=== PATIENT | male | born 1985 | race Caucasian/White ===

== ENCOUNTER 2025-10-10 10:44 | Inpatient (IN) | payer OTHER, SELFPAY ==
[2025-10-10] VITALS (8 sets, daily range): BP systolic 162–195; BP diastolic 97–115; PULSE 61–79; RESP 16–18; TEMP 36.6–37.4; O2SAT 98–100; BMI 28.3; BMI 29.4
--- NOTE | 2025-10-10 10:53 | ED.VIS.GI ---
HPI HPI - GI History of Present Illness Chief Complaint: Abd Pain Informant: patient Abdominal Pain/Flank Pain Onset: Month(s) Context: Gradual Onset Timing: Continuous Quality: Aching Location: Diffuse Worsened by: - (Not drinking alcohol) Relieved by: - (Alcohol) Nausea/Vomiting/Emesis GI Symptom: Positive for Nausea and Vomiting Diarrhea/Melena/Hematochezia GI Symptom: Negative for Diarrhea, Melena or Hematochezia Associated Symptoms Associated Symptoms: Negative for Dysuria, Frequency or Hematuria Narrative Narrative: Patient presents with abdominal pain that has gradually gotten worse over the past couple months. Patient states that it waxes and wanes. Patient states this pain is diffuse across his abdomen. Patient states it is worse when he tries to stop drinking alcohol. Patient states he gets better after he drinks some beer. Patient states he drinks approximately 20-30 beers per day. Patient states his last drink was approximately 30 minutes prior to arrival. Patient denies any prior history of detox. Patient admits to some nausea and vomiting. Patient denies any diarrhea, melena, or hematochezia. Patient denies any dysuria, frequency, or hematuria. Patient states his urine is dark however. [facility] Medical History (Updated 10/10/25 @ 12:[address] Jose Britt DO) ETOH abuse Hypertension Home Medications ?Medication ?Instructions ?Recorded ?Last Taken ?Type NK 10/10/25 Unknown History Allergy/AdvReac Type Severity Reaction Status Date / Time No Known Allergies Allergy Verified 10/10/25 10:47 Surgical History (Updated 10/10/25 @ 11:[address] Jose Britt DO) Hx of hand surgery Social History Smoking Status: Current every day smoker tobacco type: cigarettes ROS ROS ED Constitutional Constitutional ED: Denies chills or fever(s) Eyes Eyes: Denies blurry vision or change in vision ENT ENT ED: Reports sore throat; Denies rhinorrhea Cardiovascular Cardiovascular: Denies chest pain or palpitations Respiratory/Chest Respiratory/Chest: Reports dyspnea; Denies cough Gastrointestinal Gastrointestinal: Reports abdominal pain, nausea and vomiting; Denies diarrhea or melena Genitourinary Genitourinary ED: Denies dysuria or hematuria Musculoskeletal Musculoskeletal: Reports back pain; Denies neck pain Integumentary Denies abscess or rash Neurologic Neurologic: Denies headache(s) or weakness Allergic/Immunologic Allergic/Immunologic ED: Denies mouth swelling or urticaria EXAM Physical Exam Const Vital Signs: 10/10/25 10:44 10/10/25 12:24 Temperature 98.2 F Temperature Source Oral Pulse Rate 71 65 Respiratory Rate 16 18 Blood Pressure 184/115 H 195/110 H Blood Pressure Mean 138 138 Pulse Ox 98 100 Oxygen Delivery Method Room Air Room Air Positive well nourished and well developed General Appearance ED: well developed and NAD HEENT Reports moist mucous membranes Neck supple and no JVD Resp normal respiratory effort and clear to auscultation bilaterally Cardio regular rate and regular rhythm GI non-distended Palpation: soft and tender epigastric and RUQ; Negative for guarding or rebound tenderness present Extremity full ROM General Extremety ED: Negative for edema or tenderness General Extremity: Negative for edema Neuro CN's II-XII intact bilaterally, moves all extremities and no sensory deficits noted Sensorium / Orientation: alert, oriented to person, oriented to place and oriented to time Motor Exam: strength 5/5 throughout Psych mental status grossly normal and thought process normal MDM MDM MDM Narrative Medical decision making narrative: Differential diagnosis includes peptic ulcer disease, duodenal ulcer, pancreatitis, cholecystitis, cholelithiasis, electrolyte abnormality, alcohol intoxication, and alcohol withdrawal. CT scan of the abdomen and pelvis will be obtained to assess for peptic ulcer disease, duodenal ulcer, pancreatitis, cholecystitis, and cholelithiasis. CBC will be obtained to assess for leukocytosis and anemia. Comprehensive metabolic profile will be obtained to assess for hepatic function, renal function, and electrolyte abnormality. Lipase will be obtained to assess for pancreatitis. Urinalysis will be obtained to assess for urinary tract infection and hematuria. Serum alcohol level will be obtained to assess for alcohol intoxication. Urine tox screen will be obtained to assess for substance abuse. Lab Data Attestation: I reviewed the patient's lab results. Lab results narrative: CBC was reviewed. There is a mild leukocytosis of 11.1. Hemoglobin was slightly elevated at 16.9. Platelets were slightly low at 88. Comprehensive metabolic profile was reviewed. Chloride was low at 86. Anion gap was slightly elevated at 19. CO2 was normal at 28.1. Glucose was 112. Total bilirubin was mildly elevated at 1.81, AST was 115, and ALT was 107. Alkaline phosphatase was normal at 69. Lipase was reviewed and was elevated at 511. Urinalysis was reviewed. There is no evidence of urinary tract infection or hematuria. Labs: Laboratory Results - last 24 hr 10/10/25 10/10/25 11:20 11:45 WBC 11.1 H RBC 5.20 Hgb 16.9 H Hct 46.8 MCV 90.0 MCH 32.5 H MCHC 36.1 H RDW Std Deviation 38.7 RDW Coeff of [place] 11.8 Plt Count 88 L MPV 10.9 Immature Gran % (Auto) 0.500 Neut % (Auto) 84.1 H Lymph % (Auto) 7.0 L [place] % (Auto) 7.6 Eos % (Auto) 0.3 Baso % (Auto) 0.5 Absolute Neuts (auto) 9.3 H Absolute Lymphs (auto) 0.77 L Nucleated RBC % 0 Platelet Estimate MOD DEC PT 12.6 INR 0.9 APTT 25.7 Sodium 133 Potassium 3.8 Chloride 86 L Carbon Dioxide 28.1 Anion Gap 19 H BUN 5 Creatinine 0.71 Estim Creat Clear Calc 157.16 Est GFR (MDRD) Non-Af 120 BUN/Creatinine Ratio 6.8 L Glucose 112 H Calcium 9.7 Total Bilirubin 1.81 H AST 115 H ALT 107 H Alkaline Phosphatase 69 Total Protein 7.6 Albumin 4.5 Globulin 3.1 Albumin/Globulin Ratio 1.4 Lipase 511 H Urine Color Yellow Urine Clarity Clear Urine pH 7.0 Ur Specific [place] 1.005 Urine Protein 30 H Urine Glucose (UA) Normal Urine Ketones 5 H Urine Occult Blood 10 H Urine Nitrite Negative Urine Bilirubin Negative Urine Urobilinogen 4 H Ur Leukocyte Esterase Negative Urine RBC 0 SEEN Urine WBC 0 SEEN Ur Squamous Epith Cells 0 SEEN Urine Bacteria 0 SEEN Urine Mucus 0 SEEN Radiography Diagnostic Testing: Clinical Impression(s) from Imaging Studies Abdomen/Pelvis CT 10/10/25 11:14 IMPRESSION: 1. Findings consistent with acute pancreatitis. No signs of pancreatic necrosis or pseudocyst. 2. Hepatomegaly with diffuse hepatic steatosis. 3. Multifocal right lung opacities, suggesting pneumonia. Reading Location: [facility] CT scan of the abdomen and pelvis was obtained. There is some inflammation of the head of the pancreas. There is no evidence of bowel obstruction or perforation. There is no free air or free fluid. This was interpreted by the radiologist. I also independently reviewed the images. I did not see any free air or free fluid. There is no evidence of bowel obstruction. There is no reinflation of the head of the pancreas. Management Discussion w/another healthcare provider: Hospitalist (Dr. Santamaria) Treatment and Re-Evaluation :: Patient was given IV fluids, morphine, and Zofran. Patient was feeling better on reevaluation. Patient was advised of his findings. Patient was advised of the need for hospitalization. Patient is agreeable with this. Case was discussed with the hospitalist. She will admit the patient to her service. Patient understood and was agreeable with the plan. All questions were answered. Discharge Plan Dx/Rx/DC Orders Clinical Impression: Acute pancreatitis, Alcohol withdrawal, Hypertension Disposition Disposition: Acute Care Hospital [facility]
--- NOTE | 2025-10-10 11:14 | CT_ITS ---
PROCEDURE: ABDOMEN/PELVIS W IV CONT ONLY 10/10/2025 REASON FOR EXAM: Abdominal and back pain. Nausea/vomiting. History of alcohol abuse. TECHNIQUE: Procedure Code: [id number] Modality: CT Procedure: ABDOMEN/PELVIS W IV CONT ONLY Coronal and Sagittal reconstruction series were provided. CONTRAST: Isovue 370 VOLUME: 100 mL One or more dose reduction techniques were used (e.g., Automated exposure control, adjustment of the mA and/or kV according to patient size, use of iterative reconstruction technique. RADIATION DOSE SUMMARY: CTDlvol: 9.97, 19.96 mGy DLP: 1108.51 mGycm COMPARISON: None. FINDINGS: LUNG BASES: Patchy peripheral opacities in the right middle lobe and to a lesser degree right lower lobe. LIVER: Enlarged measuring 19.0 cm in length. Diffuse decrease in parenchymal density. GALLBLADDER: Unremarkable. No calcified stone. BILE DUCTS: No ductal dilation. PANCREAS: Moderate fluid along the pancreatic head with mild stranding along the tail. Homogeneous parenchymal enhancement. No ductal dilation. SPLEEN: Unremarkable. ADRENAL GLANDS: Unremarkable. KIDNEYS: Unremarkable. The kidneys enhance symmetrically. No hydronephrosis or hydroureter. STOMACH AND BOWEL: No obstruction or perforation. No wall thickening. No CT evidence of colitis or acute diverticulitis. APPENDIX: Normal-appearing appendix. No CT evidence for appendicitis. RETRO/PERITONEUM: Fluid in the right retroperitoneum and pelvis. No free air or focal fluid collections. LYMPH NODES: No lymphadenopathy. PELVIC ORGANS: Unremarkable as visualized. VASCULATURE: No aortic aneurysm. Mild scattered calcified atherosclerosis. ABDOMINAL WALL AND SOFT TISSUES: Unremarkable. BONES: No fracture or suspicious osseous abnormality. CT/Abdomen/Pelvis W IV Cont ONLY IMPRESSION: 1. Findings consistent with acute pancreatitis. No signs of pancreatic necros is or pseudocyst. 2. Hepatomegaly with diffuse hepatic steatosis. 3. Multifocal right lung opacities, suggesting pneumonia. Reading Location: [id number]
[2025-10-10 11:32] LABS: Differential Indicated SCAN CRITERIA MET; Hematocrit 46.8 % (40-54); Hemoglobin 16.9 g/dL (13.0-16.5); Immature Granulocytes Count 0.060 X10^3/uL (0.0-0.0); Mean Corp Hgb Conc 36.1 g/dL (32-36); Mean Corpuscular Volume 90.0 fL (80-94); Mean Platelet Vol. 10.9 fl (6.2-12.0); NRBC Flagged by Analyzer 0 % (0-5); POSITIVE COUNT YES; Platelet Count 88 K/mm3 (150-450); RBC Distribution Width CV 11.8 % (11.6-14.6); RBC Distribution Width SD 38.7 fl (35.1-43.9); Red Blood Count 5.20 M/mm3 (4.6-6.2); White Blood Count 11.1 K/mm3 (4.4-11.0)
[2025-10-10 11:40] LABS: Prothrombin Time (Protime)PT. 12.6 SECONDS (11.7-14.9)
[2025-10-10 11:41] LABS: Partial Thromboplast Time 25.7 Seconds (24.1-36.2)
[2025-10-10] MEDS: 0.9% Normal Saline (1000mL) 1,000 ML 1000 ML IV (11:41)
[2025-10-10 11:52] LABS: Mucous, Urine 0 SEEN /hpf (<or=2+); Red Blood Cells-Urine 0 SEEN /hpf (0-5); Squamous Epithelial Cells - UA 0 SEEN /hpf (0-5)
[2025-10-10 11:54] LABS: Color, Urine Yellow (Yellow); Glucose, Dipstick Normal (Normal); Ketone-Dipstick 5 mg/dl (Negative); Leukocyte Esterase-Dipstick Negative /ul (Negative); Nitrite-Dipstick Negative (Negative); Occult Blood-Urine 10 /ul (Negative); Protein-Dipstick 30 mg/dl (Negative); Specific Gravity, Urine 1.005 (1.002-1.030); Urine Bilirubin Dipstick Negative (Negative)
--- OUTSIDE RECORDS SUMMARY | 2025-10-10 11:58 | XMS RPT_ITS | CCD ---
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 care - The patient is transitioning into care from an emergency room ([place]) and a summary of care was reviewed. 02-06-2022 Unclassified (1 source) [ADDITIONAL REASON] Follow up consultation - The patient is here to follow-up after hospitalization ([facility] with chest pain. Patient was advised to take Lisinopril 40mg daily. He did this for about 3 days but stopped due to feeling dizzy/lightheaded. He checked his BP and was running low about 100/60. So he went back to taking only Lisinopril 20mg daily. Was also started on HCTZ 25mg daily.) on : (discharge 01-30-22). Current symptoms include Feeling good (denies current chest pain or shortness of breath.). Note for Consultation follow-up: Had a stress test and ECHO 01-30-22. reviewed by [facility] 02-06-2022 Results Test Name Value Interpretation Reference Range Facility ED MED ADMINISTRATION DETAIL on 08-09-2025 ED MED ADMINISTRATION DETAIL [facility] - CARLOTTA EVANGELISTA : 1985, , Medication Administration Record [place] [id number] 08/08/2025 Patient: CARLOTTA EVANGELISTA Sex: Male : 1985 Age: 39y MEASUREMENTS: Wt: 95.3 kg, Ht/Pancho: 70.0 in, BMI: 30.13 ALLERGIES: No known drug allergies Medication Ordered Medication Administration Date/Time IV NS 0.9 % 21:14 08/08 IV NS 0.9 % 1000 mL started in bag#1 1000 Started 1000 mL at 500 mL at 500 mL/hr over 1 hour(s) via Site# 1. Allergies 21:14 08/08/2025 mL/hr (NOW x1) verified and confirmed 5 rights. IV patency established. IV Radha Woodward R.N. site checked: no pain, redness, or swelling. IV flushed Stopped thoroughly pre-medication administration. Information 00:48 08/09/2025 reviewed with patient including reason for taking this Radha Woodward R.N. medication. Verbalizes understanding. Completed per Scanned protocol. - 21:14 Radha Woodward R.N. 00:48 08/09 Medication Discontinued: bag #1 infused. Total amount infused: 1000 mL. - 01:03 Radha Woodward R.N. Zofran IVP 4 mg 21:15 10 Zofran IVP 4 mg given over 1 minute(s) via Given (NOW x1) Site# 1. Allergies verified and confirmed 5 rights. IV 21:15 08/08/2025 patency established. IV site checked: no pain, redness, or Radha Woodward R.N. swelling. IV flushed thoroughly pre-medication Scanned administration. Information reviewed with patient including reason for taking this medication. Verbalizes understanding. - 21:16 Radha Woodward R.N. 1 of 2 [facility] - CARLOTTA EVANGELISTA DOB: 1985, , KetorOLAC 21:17 08/08 KetorOLAC (Toradol) IVP 30 mg given over 1 Given (Toradol) IVP 30 minute(s) via Site# 1. Allergies verified and confirmed 5 21:17 08/08/2025 mg (NOW x1) rights. IV patency established. IV site checked: no pain, Radha Woodward, R.N. redness, or swelling. IV flushed thoroughly pre-medication Scanned administration. Information reviewed with patient including reason for taking this medication. Verbalizes understanding. - 21:17 Radha Woodward, R.N. Thiamine IVP 21:20 08/08 Thiamine IVP 100 mg given over 1 minute(s) Given 100 mg (NOW via Site# 1. Allergies verified and confirmed 5 rights. IV 21:20 08/08/2025 x1) patency established. IV site checked: no pain, redness, or Radha Woodward R.N. swelling. IV flushed thoroughly pre-medication Scanned administration. Information reviewed with patient including reason for taking this medication. Verbalizes understanding. Medication Wastage: 100 mg wasted. - 21:24 Radha Woodward R.N. 2 of 2 Normal [facility] ED NURSES CLINICAL NOTEon ED NURSES CLINICAL NOTE Nurse Narrative - CARLOTTA EVANGELISTA, : 1985, , Nurse Clinical Narrative [address] [address] [id number] 08/08/2025 20:21:00 Patient: CARLOTTA EVANGELISTA Sex: Male : 1985 Age: 39y Disposition: Discharge Disposition Decision Time: 00:54 08/09/2025 Departure Time: 00:56 08/09/2025 TRIAGE Arrived by private vehicle. Historian: (patient). Accompanied by family. Primary physician (Dr. Parnell). Triage time: 20:24 08/08/2025. Acuity: LEVEL 3. Chief Complaint: ABDOMINAL PAIN, NAUSEA and VOMITING and (RUQ pain). This started today. The patient has had nausea, vomiting and abdominal pain. No diarrhea, constipation or fever. SEPSIS SCREEN: NEGATIVE. SIRS criteria negative. No possible sources of infection. -- 20:08/08/25 LOLITA Alvarez R.N. 20:08/08/25. BP: 155/102 MAP: 120. HR: 88. RR: 18. O2 saturation: 98% on room air. Temperature: 98.6 F. Pain level now 06/13. -- 20:08/08/25 LOLITA Alvarez R.N. Measurements: 20:08/08/25 Wt: 95.3 kg, Ht/Pancho: 70.0 in, BMI: 30.13 -- 20:08/08/25 LOLITA Alvarez R.N. Medications: no known home medications -- 20:08/08/25 LOLITA Alvarez R.N. 1 of 4 Nurse Narrative - CARLOTTA EVANGELISTA, : 1985, , Allergies: no known drug allergies -- 20:08/08/25 LOLITA Alvarez R.N. Problems: no known problem -- 20:08/08/25 LOLITA Alvarez R.N. Surgeries: left hand surgery -- 20:08/08/25 LOLITA Alvarez R.N. History 20:24 08/08/25. SOCIAL HX: Heavy tobacco smoker- 1 pack per day. Alcohol use; consumes beer daily. Occasional drug use: marijuana. The patient has not traveled outside the [place] Infectious disease exposure: No infectious disease exposure. ABUSE ASSESSMENT: The patient answered yes to the question(s) Do you feel safe in your home? and no to the question(s) Are you afraid to go home?. SELF HARM ASSESSMENT: Self harm assessment was performed. The patient answered no to the question(s) Have you recently felt down, depressed, or hopeless? and Do you have thoughts of harming or killing yourself?. FALL RISK ASSESSMENT: Fall risk assessment completed. No risk factors identified. SKIN INTEGRITY ASSESSMENT: Skin integrity risk assessment completed. No skin integrity risk identified. -- 20:08/08/25 EDT Karen Alvarez R.N. Interventions 20:24 08/08/25. Advanced care plan. Patient does not have advanced directive. -- 20:29 08/08/25 EDT Karen Alvarez R.N. 2 of 4 Nurse Narrative - CARLOTTA EVANGELISTA, : 1985, , PHYSICAL ASSESSMENT 20:59 08/08/25. GENERAL / NEURO / PSYCH: Alert. Oriented X 4. Appears in pain. HEENT: Mucous membranes are pink. RESPIRATORY: Respirations not labored. Breath sounds within normal limits. CVS: Normal sinus rhythm noted. Capillary refill less than 2 seconds. GI / : Abdominal tenderness in the right upper quadrant. SKIN: Skin is warm and dry. -- 20:59 08/08/25 EDT Radha Woodward R.N. NURSING PROGRESS NOTES 20:47 08/08/25. Two patient identifiers checked. Call light placed in reach. Side rails up x 2. Bed placed in lowest position. Brakes of bed on. -- 20:47 08/08/25 EDT Radha Woodward R.N. 20:47 08/08/25. Site #1 started in the right antecubital space with an 18g needle with aseptic technique and good blood return; 1 attempt. Blood drawn: rainbow set and flores tube(s). Labeled in the presence of the patient and sent to the lab. Saline lock flushed with 5 mL saline. -- 20:47 08/08/25 GÓMEZT Radha Woodward R.N. 21:14 08/08/25. IV NS 0.9 % 1000 mL started in bag#1 1000 mL at 500 mL/hr over 1 hour(s) via Site# 1. Allergies verified and confirmed 5 rights. IV patency established. IV site checked: no pain, redness, or swelling. IV flushed thoroughly pre-medication administration. Information reviewed with patient including reason for taking this medication. Verbalizes understanding. Completed per protocol. -- 21:14 08/08/25 GÓMEZT Radha Woodward R.N. 21:15 08/08/25. Zofran IVP 4 mg given over 1 minute(s) via Site# 1. Allergies verified and confirmed 5 rights. IV patency established. IV site checked: no pain, redness, or swelling. IV flushed thoroughly pre-medication administration. Information reviewed with patient including reason for taking this medication. Verbalizes understanding. -- 21:16 08/08/25 EDT Radha Woodward R.N. 21:17 08/08/25. KetorOLAC (Toradol) IVP 30 mg given over 1 minute(s) via Site# 1. Allergies verified and confirmed 5 rights. IV patency established. IV site checked: no pain, redness, or swelling. IV flushed thoroughly pre-medication administration. Information reviewed with patient including reason for taking this medication. Verbalizes understanding. -- 21:17 08/08/25 EDT Radha Woodward R.N. 21:20 08/08/25 (more content not included)... Normal [facility] ED ORDER SHEET (CPOE ONLY)on 08-09-2025 ED ORDER SHEET (CPOE ONLY) Order Sheet - CARLOTTA EVANGELISTA, : 1985, , Order Sheet [address] [address] [id number] 08/08/2025 Patient: CARLOTTA EVANGELISTA Sex: Male : 1985 Age: 39y MEASUREMENTS: Wt: 95.3 kg, Ht/Pancho: 70.0 in, BMI: 30.13 ALLERGIES: No known drug allergies MEDICATION/IV/DRIP/F LUID ORDERS Acknowledge Order Description Priority Entered d Completed IV NS 0.9 %1000 mL at 500 21:04 08/08/2025 21:10 21:14 mL/hr (NOW x1) Michael Gutierrez, 08/08/2025 08/08/2025 Nilsa.ORadha Gill, R.N. R.N. Zofran IVP4 mg (NOW x1) 21:04 08/08/2025 21:10 21:16 Michael Gutierrez, 08/08/2025 08/08/2025 MargaritoORadha Gill, Susan.N. R.N. KetorOLAC (Toradol) IVP15 21:04 08/08/2025 Cancelled: Other mg (NOW x1) Michael Gutierrez, 21:05 EDT Tre AdamesOJosefina KetorOLAC (Toradol) IVP30 21:05 08/08/2025 21:10 21:17 mg (NOW x1) Michael Gutierrez, 08/08/2025 08/08/2025 Nilsa.ORadha Gill R.N. RJosefinaNJosefina 1 of 4 Order Sheet - CARLOTTA EVANGELISTA, : 1985, , Reason for ordering with Benefits outweigh risks --21:05 08/08/2025 Michael alerts: Tre Gutierrez Thiamine HRT989 mg (NOW 21:08 08/08/2025 21:10 21:24 x1) Michael Gutierrez, 08/08/2025 08/08/2025 D.ORadha Gill R.N. RJosefinaNJosefina LAB ORDERS Acknowledge Order Description Priority Entered d Collected Completed CBC w Diff Stat Stat 21:07 21:09 21:10 08/08/2025 08/08/2025 08/08/2025 Radha Adames R.N. Anne Rutt, R.N. D.O. CMP Stat Stat 21:07 21:09 21:10 08/08/2025 08/08/2025 08/08/2025 Radha Adames R.N. Anne Rutt, R.N. D.O. Lipase Stat Stat 21:07 21:09 21:10 08/08/2025 08/08/2025 08/08/2025 Radha Adames R.N. Anne Rutt, R.N. D.O. EKG - ED Stat Stat 21:07 21:09 21:55 08/08/2025 08/08/2025 08/08/2025 Radha Adames R.N. Anne Rutt, R.N. D.OJosefina Troponin-I Protocol Stat 21:07 21:09 21:10 (STAT 1hr) (Sched: 08/08/2025 08/08/2025 08/08/2025 2 of 4 Order Sheet - CARLOTTA EVANGELISTA, : 1985, , q1h X2); Stat 1 of 2 Radha Adames R.N. Anne Rutt, RJosefinaNJosefina PimentelO. Troponin-I Protocol Stat 21:07 21:09 22:59 (STAT 1hr) (Sched: 08/08/2025 08/08/2025 08/08/2025 q1h X2); Stat 2 of 2 Radha Adames R.N. Anne Rutt, R.N. D.O. D-Dimer Stat Stat 21:07 21:09 21:10 08/08/2025 08/08/2025 08/08/2025 Radha Adames R.NYessenia Gill.O. Blood Alcohol - Stat 21:07 21:09 21:10 ETOH Stat 08/08/2025 08/08/2025 08/08/2025 Radha Adames R.N. Anne Rutt, R.N. D.O. DIAGNOSTIC STUDY ORDERS Acknowledge Order Description Priority Entered d Completed CT Chest/Abd/Pelvis wo Stat 21:07 08/08/2025 21:09 21:56 Cont Stat Michael Gutierrez, 08/08/2025 08/08/2025 D.O. Radha Sepulveda, R.N. R.N. Reason for Study: Abdominal Pain STAFF ORDERS Acknowledge Order Description Priority Entered d Collected Completed Obtain Old EKG 21:07 21:09 22:05 08/08/2025 08/08/2025 08/08/2025 3 of 4 Order Sheet - CARLOTTA EVANGELISTA, : 1985, , Radha Adames R.NYessenia GillO. [Electronically signed by Michael Gutierrez D.O. (08/09/2025 04:38 EDT)] [Electronically signed by Michael Gutierrez D.O. (08/09/2025 15:32 EDT)] [Electronically signed by Michael Gutierrez D.O. (08/09/2025 17:18 EDT)] 4 of 4 Normal [facility] ED PHYSICIAN CLINICAL REPORT on 08-09-2025 ED PHYSICIAN CLINICAL REPORT Narrative - CARLOTTA EVANGELISTA, : 1985, , Physician Clinical Narrative [address] [address] [id number] 08/08/2025 20:21:00 Patient: CARLOTTA EVANGELISTA Sex: Male : 1985 Age: 39y Disposition: Discharge to Home Disposition Decision Time: 00:54 08/09/2025 Departure Time: 00:56 08/09/2025 Measurements Wt: 95.3 kg, Ht/Pancho: 70.0 in, BMI: 30.13 Initial Vital Sign Measured Supriya Time BP MAP HR RR O2Sat ETCO2 Temp n GCS RTS 20:27 155/102 117 88 08/08/2025 PAST HISTORY no known problem Surgeries: left hand surgery Medications: no known home medications Allergies: no known drug allergies 1 of 12 Narrative - CARLOTTA EVANGELISTA, : 1985, , PROGRESS AND PROCEDURES MEDICAL DECISION MAKING: (1535 hours, 09 AUG 2025: Call to patient, , to check status, at discharge patient had been improved, wanted to depart the ER: Answering machine to phone, full, no message could be left. Will attempt a call later. Nate GUTIERREZ< ER PHYSICIAN, [facility] [place]). (Electronically signed by Michael Gutierrez D.O. 08/09/25 15:32:18 EDT) Disposition History: Disposition Decision Time: 00:54 08/09/2025. Disposition changed to Discharge. Departure Time: 00:56 08/09/2025. -- 01:04 08/09/2025 Radha Woodward R.N. Disposition Decision Time: 00:54 08/09/2025. Disposition changed to Discharge to Home. Departure Time: 00:56 08/09/2025. -- 04:37 08/09/2025 Michael Gutierrez D.O. Generated by [facility] Physician Clinical Narrative [place] [id number] [place] [address] [id number] 08/08/2025 20:21:00 Patient: CARLOTTA EVANGELISTA Sex: Male : 1985 Age: 39y Disposition: Discharge to Home Disposition Decision Time: 00:54 08/09/2025 Departure Time: 00:56 08/09/2025 Measurements Wt: 95.3 kg, Ht/Pancho: 70.0 in, BMI: 30.13 Initial Vital Sign Measured Supriya Time BP MAP HR RR O2Sat ETCO2 Temp n GCS RTS 2 of 12 Narrative - CARLOTTA EVANGELISTA, : 1985, , 20:27 155/102 117 88 08/08/2025 Time Seen: 20:47 08/08/2025. Historian- patient. Independent historian- family. HISTORY OF PRESENT ILLNESS Chief Complaint: ABDOMINAL PAIN. (Right upper quad, 3-4 hours, insidious onset, worse to breath, worse to move, no hx trauma, no hx of same,). Is still present. It is described as pain, sharp and stabbing. No radiation. It is described as located in the right upper quadrant. At its maximum, severity described as moderate. The patient has had nausea and vomiting. No diarrhea. Similar symptoms previously. None. REVIEW OF SYSTEMS EYES: No blurred vision. THROAT: No sore throat. NEUROLOGICAL: No headache. CONSTITUTIONAL: No fever. : No difficulty with urination, pain with urination or urinary frequency. GI: No constipation, black stools or hematemesis. PAST HISTORY Family hx cardiac father, patient states had cardiac testing two years ago was normal, no hx abd sx, no hx food issues, was watching parade at time of onset; (+) cig, (+) etoh (he states quite a bit). No history of peptic ulcer. No history of gallstones or bowel obstruction. Has not had urinary calculi. no known problem Surgeries: left hand surgery Medications: no known home medications Allergies: no known drug allergies 3 of 12 Narrative - CARLOTTA EVANGELISTA, : 1985, , ADDITIONAL NOTES The nursing notes have been reviewed. PHYSICAL EXAM Vital Signs: Have been reviewed. Appearance: Alert. Patient in moderate distress. Eyes: Pupils equal, round and reactive to light. Eyes normal inspection. ENT: Ears normal. Nose normal. Pharynx normal. Neck: Normal inspection. Neck supple. CVS: Normal heart rate. Heart sounds normal. Pulses normal. Respiratory: No respiratory distress. Painless inspiration. Breath sounds normal. Chest nontender. Abdomen: Soft. Moderate tenderness in the right upper quadrant (right upper quad in mid ax line, not writhing as in kidney stone). Bowel sounds normal. No organomegaly. No mass. Femoral pulses equal. Back: Normal inspection. : Normal genitalia. Testes descended. Skin: Skin warm and dry. Normal skin color. No rash. Normal skin turgor. Extremities: Extremities exhibit normal ROM. No lower extremity edema. Neuro: Oriented X 3. No motor deficit. No sensory deficit. Reflexes normal. LABS, X-RAYS, AND EKG Note - Tests: (ekg nl 2154 hours, nsr 08 AUG 2025, no acuity, er physcian reading, ct chest abd pelvis nad rad read). Laboratory Tests: ALCOHOL-BLOOD MEDICAL Final BOBO: 08/08/2025 20:30:00 EDT MsgRcvd: 08/08/2025 21:34 EDT Lab Test Result Reference Status Received 326 mg/dl 08/08/2025 21:34 ALCOHOL 0 - (more content not included)... Normal [facility] ED SUPER BILLon 08-09-2025 [facility] CARLOTTA EVANGELISTA, : 1985, , [address] [place] [address] [id number] 08/08/2025 Patient: CARLOTTA EVANGELISTA Sex: Male : 1985 Age: 39y Item Facility Profession Category Description Code al Code Quantity Fee Total Drugs Normal 321304 1 $0.00 $0.00 Saline 1000cc (600881) Nurse/E/M EMERGENCY 221429 1 $0.00 $0.00 [facility]05176- [facility] Nurse/IV/IM/ Hydration 077413 4 $0.00 $0.00 Infusions additional hour (54146) Nurse/IV/IM/ IVP 121063 2 $0.00 $0.00 Infusions additional push (17408) Nurse/IV/IM/ IVP initial 406446 1 $0.00 $0.00 Infusions (86205) 1 of 2 Superbill - CARLOTTA EVANGELISTA, : 1985, , Grand Total $0.00 Providers Tre Adames D.O. Timothy Omley, D.O. Chief Complaint ABDOMINAL PAIN. 2 of 2 Normal [facility] ED VISIT SUMMARYon ED VISIT SUMMARY Visit Overview - CARLOTTA EAVNGELISTA : 1985, , Visit [address] [address] [id number] 08/08/2025 Patient: CARLOTTA EVANGELISTA Sex: Male : 1985 Age: 39y 08/09/2025 05:18 PM EDT ED Arrival:20:21 08/08/2025 Status: Recent Travel:no EDT Language:eng Adv Directive:No Isolation Status: Infectious Disease Ethnicity:N Fall Risk:no risk Exposure:no Measurements:5'10 / Self-Harm Status:risk Sepsis Screen:negative 177.8 cm 210.0 lb / 95.3 kg Chief Complaint:ABDOMINAL PAIN, NAUSEA, VOMITING, (Dr. Parnell ), and (RUQ pain ) ALLERGIES No Known Drug Allergies HOME MEDICATIONS None 1 of 3 Visit Overview - CARLOTTA EVANGELISTA, : 1985, , PAST MEDICAL HISTORY / PROBLEMS None PAST SURGICAL HISTORY left hand surgery SOCIAL HISTORY Smoking status: Yes Alcohol use: Yes Drug use: Yes ED COURSE MEDICATIONS GIVEN IN EMERGENCY DEPARTMENT 21:14 08/08/25 IV NS 0.9 % 1000 mL 500 mL/hr over 1 hour(s) 21:15 08/08/25 Zofran IVP 4 mg over 1 minute(s) 21:17 08/08/25 KetorOLAC (Toradol) IVP 30 mg over 1 minute(s) 21:20 08/08/25 Thiamine IVP 100 mg over 1 minute(s) IV SITE INFORMATION INTAKE OUTPUT REASSESMENT (most recent) 20:59 08/08/25. GENERAL / NEURO / PSYCH: Alert. Oriented X 4. Appears in pain. HEENT: Mucous membranes are pink. RESPIRATORY: Respirations not labored. Breath sounds within normal limits. CVS: Normal sinus rhythm noted. Capillary refill less than 2 seconds. GI / : Abdominal tenderness in the right upper quadrant. SKIN: Skin is warm and dry. VITAL SIGNS First Vitals Last Vitals Temp 20:27 08/08/25 Temp 00:54 08/09/25 BP 20:27 08/08/25 155/102 BP 00:54 08/09/25 HR 20:27 08/08/25 88 HR 00:54 08/09/25 82 2 of 3 Visit Overview - CARLOTTA EVANGELISTA, : 1985, , RR 20:27 08/08/25 RR 00:54 08/09/25 O2 Sat 20:27 08/08/25 O2 Sat 00:54 08/09/25 95% Pain 20:27 08/08/25 Pain 00:54 08/09/25 ETCO2 20:27 08/08/25 ETCO2 00:54 08/09/25 GCS 20:27 08/08/25 GCS 00:54 08/09/25 RTS 20:27 08/08/25 RTS 00:54 08/09/25 PROCEDURES NURSING INTERVENTIONS LABS / STUDIES LABS / STUDIES ORDERED Blood Alcohol - ETOH CBC w Diff CMP CT Chest/Abd/Pelvis wo Cont D-Dimer EKG - ED Lipase Troponin-I Protocol (STAT 1hr) Troponin-I Protocol (STAT 1hr) LABS - ABNORMAL RESULTS ALCOHOL-BLOOD MEDICAL ALCOHOL 326 mg/dl () LABS / STUDIES PENDING IMPORT CT CHEST/ABD/PELVIS C- CLINICAL IMPRESSION 3 of 3 Normal [facility] ED VITALS FLOW SHEETon 08-09 ED VITALS FLOW SHEET Vitals - CARLOTTA EVANGELISTA, : 1985, , Vital Sign Flow Sheet [facility] [address] [place] [address] [id number] 08/08/2025 Patient: CARLOTTA EVANGELISTA Sex: Male : 1985 Age: 39y Measurements Wt: 95.3 kg, Ht/Pancho: 70.0 in, BMI: 30.13 Measured Supriya Time BP MAP HR RR O2Sat ETCO2 Temp n GCS RTS 00:54 82 95% 08/09/2025 00:49 66 92% 08/09/2025 00:44 71 92% 08/09/2025 00:39 71 92% 08/09/2025 00:34 69 92% 08/09/2025 00:32 121/73 89 69 08/09/2025 22:14 77 96% 08/08/2025 22:09 68 97% 08/08/2025 1 of 3 Vitals - CARLOTTA EVANGELISTA, : 1985, , 22:04 68 99% 08/08/2025 21:59 76 98% 08/08/2025 21:54 67 96% 08/08/2025 21:49 68 96% 08/08/2025 21:44 71 95% 08/08/2025 21:39 68 96% 08/08/2025 21:34 77 98% 08/08/2025 21:29 70 98% 08/08/2025 21:24 77 92% 08/08/2025 21:19 73 97% 08/08/2025 21:14 76 96% 08/08/2025 21:09 74 98% 08/08/2025 21:04 76 97% 08/08/2025 20:59 79 97% 08/08/2025 20:54 77 96% 08/08/2025 2 of 3 Vitals - CARLOTTA EVANGELISTA, : 1985, , 20:49 86 96% 08/08/2025 20:44 67 98% 08/08/2025 20:39 77 98% 08/08/2025 20:34 88 96% 08/08/2025 20:29 88 98% 08/08/2025 20:29 155/102 120 88 18 98% RA 98.6 F 8 08/08/2025 20:27 155/102 117 88 08/08/2025 3 of 3 Normal [facility] ALCOHOL-BLOOD MEDICALon Ethanol [Mass/Vol] 326 mg/dL Critically high 0 - 50 [facility] Comment on above: Result Comment: { CA LLED TO PIERCE OBREGON BY AEL AT 2133 { READ BACK BY PIERCE OBREGON RA AT 2133 Performed By: #### 2 [id number] ####[facility],[address] [place] [address] CBC + DIFFon 08-08-2025 Baso # 0.03 x10EE3/UL Normal 0.00 - 0.10 [facility] Comment on above: Performed By: #### 2 [id number] #### [facility],[address] [place] [address] Basophils/100 WBC (Bld) 0.4 % Normal 0.0 - 2.0 [facility] Comment on above: Performed By: #### 2 [id number] #### [facility],[address] [place] [address] CBC + DIFF Normal [facility] Comment on above: Result Comment: CBC- COMPLETE BLOOD COUNT Performed By: #### 2 [id number] #### [place] [address] EO # 0.18 x10EE3/UL Normal 0.00 - 0.50 [facility] Comment on above: Performed By: #### 2 [id number] #### [facility],[address] [place], [place] [phone] Eosinophils/100 WBC (Bld) 2.2 % Normal 0.0 - 7.0 [facility] Comment on above: Performed By: #### 2 [id number] #### [facility],[address] [place], [place] [phone] Erythrocyte distribution width (RBC) [Ratio] 13.3 % Normal 12.0 - 15.6 [facility] Comment on above: Performed By: #### 2 [id number] #### [facility],[address] [place] [address] Hematocrit (Bld) [Volume fraction] 50.8 % Normal 40.0 - 52.0 [facility] Comment on above: Performed By: #### 2 [id number] #### [facility],[address] [place] [address] Hemoglobin (Bld) [Mass/Vol] 17.8 g/dL High 13.0 - 17.5 [facility] Comment on above: Performed By: #### 2 [id number] #### [facility],[address] [place] [address] Lymph # 2.50 x10EE3/UL Normal 0.80 - 2.80 [facility] Comment on above: Performed By: #### 2 10857 #### [facility],[address] [place], [place] [phone] Lymphocytes/100 WBC (Bld) 30.6 % Normal 20.0 - 45.0 [facility] Comment on above: Performed By: #### 2 74486 #### [facility],[address] [place], [place] [phone] MANUAL DIFF N/A Normal [facility] Comment on above: Performed By: #### 2 [id number] #### [facility],[address] [place] [id number] MCH (RBC) [Entitic mass] 32 pg Normal 27 - 33 [facility] Comment on above: Performed By: #### 2 [id number] #### [facility],[address] [place] [address] MCHC 35 X10 3 Normal 32 - 36 [facility] Comment on above: Performed By: #### 2 71738 #### [facility],[address] [place], [place] [phone] MCV (RBC) [Entitic vol] 91 fL Normal 81 - 98 [facility] Comment on above: Performed By: #### 2 [id number] #### [facility],[address] [place] [address] [place] # 0.81 x10EE3/UL Normal 0.20 - 1.00 [facility] Comment on above: Performed By: #### 2 [id number] #### [facility],[address] [place] [address] MONOS % 9.9 % Normal 0.0 - 10.0 [facility] Comment on above: Performed By: #### 2 84694 #### [facility],[address] [place], [place] [id number] Morphology Bryan (Bld) [Interp] N/A Normal [facility] Comment on above: Performed By: #### 2 56830 #### [facility],[address] [place] [address] Neut # 4.64 x10EE3/UL Normal 1.50 - 7.10 [facility] Comment on above: Performed By: #### 2 66902 #### [facility],[address] [place], [place] [id number] Neutrophils/100 WBC (Bld) 56.9 % Normal 46.0 - 76.0 [facility] Comment on above: Performed By: #### 2 62202 #### [facility],[address] [place] [address] PLATELET 190 x10EE3/UL Normal 150 - 450 [facility] Comment on above: Performed By: #### 2 49646 #### [facility],[address] [place] [address] 34004 Platelet mean volume (Bld) [Entitic vol] 7.8 fL Normal 6.4 - 10.5 [facility] Comment on above: Result Comment: AUTO MATED DIFFERENTIAL Performed By: #### 2 90583 #### [facility],[address] [place] [address] 39744 RBC 5.58 x 10EE6/UL Normal 4.50 - 6.00 [facility] Comment on above: Performed By: #### 2 59660 #### [facility],[address] [place] [address] 90278 WBC 8.2 x 10EE3/UL Normal 4.5 - 10.8 [facility] Comment on above: Performed By: #### 2 48455 #### [facility],[address] [place] [address] 70694 CMP with eGFRon 08-08-2025 AGE 39 years Normal [facility] Comment on above: Performed By: #### 2 31636 ####[facility],[address] [place] [address] 91263 Albumin [Mass/Vol] 4.5 g/dL Normal 3.4 - 5.0 [facility] Comment on above: Performed By: #### 2 92567 ####[facility],[address] [place] [address] 32090 Albumin/Globulin [Mass ratio] 1.4 {ratio} Normal 0.9 - 1.6 [facility] Comment on above: Performed By: #### 2 59587 ####[facility],[address] [place] [address] 79235 ALK PHOS 51 U/L Normal 46 - 116 [facility] Comment on above: Performed By: #### 2 81762 ####[facility],[address] [place] [address] 08102 ALT [Catalytic activity/Vol] 43 U/L Normal 16 - 63 [facility] Comment on above: Performed By: #### 2 30779 ####[facility],[address] [place] [address] 20905 Anion gap [Moles/Vol] 16 mmol/L Normal 10 - 20 [facility] Comment on above: Performed By: #### 2 66548 ####[facility],[address] [place] [address] 85860 AST [Catalytic activity/Vol] 50 U/L High 15 - 37 [facility] Comment on above: Performed By: #### 2 49798 ####[facility],[address] [place] [address] 24269 B/C RATIO 7 ratio Normal 0 - 30 [facility] Comment on above: Performed By: #### 2 06821 ####[facility],[address] [place] [address] 45142 Bilirubin [Mass/Vol] 0.7 mg/dL Normal 0.2 - 1.0 [facility] Comment on above: Performed By: #### 2 75090 ####[facility],[address] [place] [address] 67702 Calcium [Mass/Vol] 8.7 mg/dL Normal 8.5 - 10.1 [facility] Comment on above: Performed By: #### 2 21504 ####[facility],[address] [place] [address] 33038 Chloride [Moles/Vol] 97 mmol/L Low 98 - 107 [facility] Comment on above: Performed By: #### 2 30236 ####[facility],[address] [place] [address] 99903 CMP with eGFR Normal [facility] Comment on above: Result Comment: COMP REHENSIVE METABOLIC PANEL Performed By: #### 2 13681 ####[facility],[address] [place] [address] 89638 CO2 [Moles/Vol] 28.0 mmol/L Normal 21.0 - 32.0 [facility] Comment on above: Performed By: #### 2 21471 ####[facility],[address] [place] [address] 28526 Creatinine [Mass/Vol] 0.88 mg/dL Normal 0.70 - 1.30 [facility] Comment on above: Performed By: #### 2 89428 ####[facility],[address] [place] [address] 34740 GFR/1.73 sq M.predicted among non-blacks MDRD (S/P/Bld) [Vol rate/Area] mL/min/{1.73_m2} Normal 60 - 999 [facility] Comment on above: Performed By: #### 2 75497 ####[facility],[address] [place] [address] 50337 Result Comment: ACCO RDING TO THE NATIONAL KIDNEY DISEASE EDUCATION PROGRAM(NKDE), A NORMAL eGFR IS A VALUE GREATER THAN OR EQUAL TO 60 ML/MIN/1.73 SQ METERS. CHRONIC KIDNEY DISEASE: <60mL/MIN/1.73 SQ METERS KIDNEY FAILURE: <15mL/MIN/1.73 SQ METERS THIS TEST SHOULD ONLY BE USED FOR PATIENTS 18 YEARS OF AGE AND OLDER. Globulin (S) [Mass/Vol] 3.2 g/dL Normal 1.5 - 3.8 [facility] Comment on above: Performed By: #### 2 47138 ####[facility],[address] [place] [address] 60393 Glucose [Mass/Vol] 89 mg/dL Normal 74 - 106 [facility] Comment on above: Performed By: #### 2 40926 ####[facility],[address] [place] [address] 70111 Potassium [Moles/Vol] 4.1 mmol/L Normal 3.5 - 5.1 [facility] Comment on above: Performed By: #### 2 62040 ####[facility],[address] [place] [address] 99435 Protein [Mass/Vol] 7.7 g/dL Normal 6.4 - 8.2 [facility] Comment on above: Performed By: #### 2 80742 ####[facility],[address] [place] [address] 19107 Sodium [Moles/Vol] 137 mmol/L Normal 136 - 145 [facility] Comment on above: Performed By: #### 2 62662 ####[facility],[address] [place] [address] 35552 Urea nitrogen [Mass/Vol] 6 mg/dL Low 7 - 18 [facility] Comment on above: Performed By: #### 2 82438 ####[facility],[address] [place] [address] CHEST/ABD/PELVIS C-on CT CHEST/ABD/PELVIS C- [address] ? [place] [address] ? Patient: CARLOTTA EVANGELISTA Phone#: : 1985 Age: 39 Gender: M Pt. Type: ER Account: [id number] Location: [facility] Ordering: DR. MICHAEL GUTIERREZ Exam Date: 08/08/2025/22:20 Family Phys: HECTOR PARNELL Charge Code: 412777 Physician: [place] Order #: [id number] Dose#: [id number] PROCEDURE: CT CHEST/ABD/PELVIS WO COMPARISON: None. INDICATIONS: Abdominal pain. TECHNIQUE: CT images were obtained without the administration of intravenous contrast material. All CT scans at this facility use dose modulation, iterative reconstruction, and/or weight based dosing when appropriate to reduce radiation dose to as low as reasonably achievable. IV CONTRAST: No IV contrast used,ml TOTAL DOSE: CTDIvol(mGy) FINDINGS: Evaluation of the solid organs and soft tissues is limited in the absence of intravenous contrast. LUNGS: Respiratory motion somewhat limits evaluation. Within the limits of the exam, no focal acute pulmonary parenchymal abnormality. VASCULATURE: Unremarkable in size CASSIDY: Limited evaluation for adenopathy in the absence of contrast MEDIASTINUM: Normal. No mass or adenopathy. CARDIAC: Coronary artery calcifications PLEURA: Normal. No mass or effusion. CHEST WALL: Normal. No mass or axillary adenopathy. LIVER: Liver is diffusely decreased in attenuation, consistent with diffuse fatty infiltration BILIARY: Gallbladder is present. Dense fluid within the gallbladder, suggesting gallbladder sludge PANCREAS: Unremarkable in contour SPLEEN: Unremarkable in contour KIDNEYS: No nephrolithiasis or hydronephrosis. ADRENALS: Normal. No mass or enlargement. Continued Report - Page 2 of 2 Patient: CARLOTTA EVANGELISTA Phone#: : 1985 Age: 39 Gender: M Pt. Type: ER Account: [id number] Location: 052 Ordering: DR. MICHAEL GUTIERREZ Exam Date: 08/08/2025/22:20 Family Phys: HECTOR PARNELL Charge Code: 701677 Physician: Hancock Order #: [id number] Dose#: [id number] AORTA/VASCULAR: No aortic aneurysm. Scattered atherosclerotic calcifications of the aorta and branch vessels RETROPERITONEUM: Normal. No mass or adenopathy. BOWEL/MESENTERY: No bowel obstruction or dilatation. No significant stool burden. Appendix is unremarkable in size and contains air. ABDOMINAL WALL: Normal. No mass or hernia. URINARY BLADDER: Fluid-filled PELVIC NODES: Normal. No adenopathy. PELVIC ORGANS: Normal. No visible mass. Pelvic organs appropriate for patient age. BONES: Facet arthropathy at L5-S1 not the right. OTHER: Negative. CONCLUSION: 1. Diffuse fatty infiltration of the liver 2. Probable gallbladder sludge. Dictated by: Lita Monson MD on 08/09/2025 at 9:17 Approved by: Lita Monson MD on 08/09/2025 at 9:30 Normal [facility] D-DIMER, QUANTITATIVEon 10-0 D-DIMER QUANT 410 ng/ml High 0 - 230 [facility] Comment on above: Performed By: #### 2 15236 #### [facility],[address] [place] [address] D-DIMER, QUANTITATIVE Normal [facility] Comment on above: Result Comment: QUINN T D-DIMER Performed By: #### 2 62794 #### [facility],[address] [place] [address] LIPASEon 08-08-2025 Lipase [Catalytic activity/Vol] 82.0 U/L High 15.0 - 78.0 [facility] Comment on above: Result Comment: *PLE ASE NOTE THAT RANGES FOR LIPASE HAVE CHANGED OF 11/01/23 DUE TO AN ASSAY UPDATE BY THE COMIC BOOK ARTIST.THE NEW ASSAY RANGE IS 6-250 U/L, WITH A REFERENCE RANGE OF 16-77 U/L. 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 [facility] Comment on above: Result Comment: Nega tive for This test was developed and its performance characteristics determined by [facility]'s [facility] [place]. This test has been authorized by FDA under an Emergency Use Authorization (EUA). This test has been validated in accordance with the FDA's Guidance Document Policy for Diagnostics Testing in Laboratories Certified to Perform High Complexity Testing under CLIA prior to Emergency use Authorization for Coronavirus Disease 2019 during the Public Health Emergency issued on January 02, 2020. COVID19 (SARS This test was developed and its performance characteristics determined by [facility]'s [facility] [place]. This test has been authorized by FDA under an Emergency Use Authorization (EUA). This test has been validated in accordance with the FDA's Guidance Document Policy for Diagnostics Testing in Laboratories Certified to Perform High Complexity Testing under CLIA prior to Emergency use Authorization for Coronavirus Disease 2019 during the Public Health Emergency issued on January 02, 2020. CoV2) by PCR. This test was developed and its performance characteristics determined by [facility] [place] [facility] [place]. This test has been authorized by FDA under an Emergency Use Authorization (EUA). This test has been validated in accordance with the FDA's Guidance Document Policy for Diagnostics Testing in Laboratories Certified to Perform High Complexity Testing under CLIA prior to Emergency use Authorization for Coronavirus Disease 2019 during the Public Health Emergency issued on January 02, 2020. 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 No Panel Informationon 12-11 A DIAGNOSIS SEE NOTE Normal [facility]. A GROSS DESCRIPTION SEE NOTE Normal [employer].; [facility]. A SOURCE SEE NOTE Normal [facility]. CLINICAL INFORMATION SEE NOTE Normal [employer].; [facility]. Laboratory - Microbiology an d Antimicrobial susceptibilityon 01-31-2019 FLUAV Ag IA Ql (Throat) Negative Normal [employer]; [facility]. FLUAV Ag IA Ql (Throat) Positive Abnormal [facility]. Vital Signs Date Time Vital Sign Value Performing Clinician Facility 08-17-2024 15:03-0400 Body height 176.53 cm Hector Parnell MD Work Phone: [employer]; [facility]. 08-17-2024 15:03-0400 Body mass index (BMI) [Ratio] 33.04 kg/m2 Hector Parnell MD Work Phone: [facility] 08-17-2024 15:03-0400 Body surface area Derived from formula 2.19 m2 Hector Parnell MD Work Phone: [facility].; [facility]. 08-17-2024 15:03-0400 Body weight 102.97 kg Hector Parnell MD Work Phone: [facility].; [facility]. 08-17-2024 15:03-0400 Diastolic blood pressure 94 mm[Hg] Hector Parnell MD Work Phone: [facility]. Comment on above: Patient Position: Sitting; Cuff Location : Left Arm; Cuff Size: Standard 08-17-2024 15:03-0400 Heart rate 68 /min Hector Parnell MD Work Phone: [employer]; [facility]. Comment on above: Pattern: Regular 08-17-2024 15:03-0400 Systolic blood pressure 162 mm[Hg] Hector Parnell MD Work Phone: [facility].; [facility]. Comment on above: Patient Position: Sitting; Cuff Location : Left Arm; Cuff Size: Standard 08-19-2023 08:01-0400 Body height 176.53 cm Hector Parnell MD Work Phone: [facility].; [facility]. 08-19-2023 08:01-0400 Body mass index (BMI) [Ratio] 36.68 kg/m2 Hector Parnell MD Work Phone: [facility].; [facility]. 08-19-2023 08:01-0400 Body surface area Derived from formula 2.29 m2 Hector Parnell MD Work Phone: [employer].; [facility]. 08-19-2023 08:01-0400 Body weight 114.31 kg Hector Parnell MD Work Phone: [employer]; [facility]. 08-19-2023 08:01-0400 Diastolic blood pressure 82 mm[Hg] Hector Parnell MD Work Phone: [employer]; [facility]. Comment on above: Patient Position: Sitting; Cuff Location : Left Arm; Cuff Size: Standard 08-19-2023 08:01-0400 Heart rate 79 /min Hector Parnell MD Work Phone: [employer]; [facility]. Comment on above: Pattern: Regular 08-19-2023 08:01-0400 Systolic blood pressure 136 mm[Hg] Hector Parnell MD Work Phone: [employer]; [facility]. Comment on above: Patient Position: Sitting; Cuff Location : Left Arm; Cuff Size: Standard 12-28-2022 15:43-0500 Body height 176.53 cm [facility] Work Phone: [employer]; [facility]. 12-28-2022 15:43-0500 Body mass index (BMI) [Ratio] 37.84 kg/m2 [facility] Work Phone: [employer]; [employer]. 12-28-2022 15:43-0500 Body surface area Derived from formula 2.32 m2 [facility] Work [facility]: [employer]; [facility]. 12-28-2022 15:43-0500 Body temperature 99.8 [degF] [facility] Work [facility]: [employer]; [facility]. Comment on above: Method: Tympanic 12-28-2022 15:43-0500 Body weight 117.94 kg Angelica Andrea TRACK WATCHMAN Work Phone: [place] [employer]; [employer]. 12-28-2022 15:43-0500 Diastolic blood pressure 86 mm[Hg] Angelica Munozy TRACK WATCHMAN Work Phone: [place] [employer]; [facility]. Comment on above: Patient Position: Sitting; Cuff Location : Left Arm; Cuff Size: Standard 12-28-2022 15:43-0500 Heart rate 72 /min Angelica Munozy TRACK WATCHMAN Work Phone: [place] [employer]; [facility]. Comment on above: Pattern: Regular 12-28-2022 15:43-0500 Inhaled oxygen concentration 20 % Angelica Munozy TRACK WATCHMAN Work Phone: [place] [employer]; [facility]. Comment on above: Room air 12-28-2022 15:43-0500 Inhaled oxygen concentration 21 % Angelica Munozy TRACK WATCHMAN Work Phone: [place] [employer]; [facility]. Comment on above: Room air 12-28-2022 15:43-0500 SaO2% (BldA) [Mass fraction] 95 % Angelica Munozy TRACK WATCHMAN Work Phone: [place] [employer]; [employer]. 12-28-2022 15:43-0500 Systolic blood pressure 169 mm[Hg] Angelica Munozy TRACK WATCHMAN Work Phone: [place] [employer]; [facility]. Comment on above: Patient Position: Sitting; Cuff Location : Left Arm; Cuff Size: Standard 11-26-2022 15:43-0500 Body height 176.53 cm Ai Guy MA [place] [employer] [facility].; [place] [employer]. 11-26-2022 15:43-0500 Body mass index (BMI) [Ratio] 38.14 kg/m2 Ai Guy MA [place] [employer].; [place] [employer]. 11-26-2022 15:43-0500 Body surface area Derived from formula 2.33 m2 Ai Brooks [facility].; [employer] [facility]. 11-26-2022 15:43-0500 Body weight 118.84 kg Ai Perezelizabeth CALLOWAY [facility].; [place] [employer]. 11-26-2022 15:43-0500 Diastolic blood pressure 87 mm[Hg] Ai Perezelizabeth CALLOWAY [facility].; [place] [employer]. Comment on above: Patient Position: Sitting; Cuff Location : Left Arm; Cuff Size: Large 11-26-2022 15:43-0500 Heart rate 80 /min Ai Perezelizabeth CALLOWAY [facility].; [place] [employer]. Comment on above: Pattern: Regular 11-26-2022 15:43-0500 Systolic blood pressure 151 mm[Hg] Ai Perezelizabeth CALLOWAY [facility].; [employer]. Comment on above: Patient Position: Sitting; Cuff Location : Left Arm; Cuff Size: Large 08-13-2022 13:42-0400 Body height 176.53 cm Hector Parnell MD Work Phone: [facility].; [employer]. 08-13-2022 13:42-0400 Body mass index (BMI) [Ratio] 37.41 kg/m2 Hector Parnell MD Work Phone: [facility].; [employer]. 08-13-2022 13:42-0400 Body surface area Derived from formula 2.31 m2 Hector Parnell MD Work Phone: [place] [employer] [facility].; [employer]. 08-13-2022 13:42-0400 Body weight 116.58 kg Hector Parnell MD Work Phone: [place] [employer].; [employer]. 08-13-2022 13:42-0400 Diastolic blood pressure 99 mm[Hg] Hector Parnell MD Work Phone: [place] [employer].; [employer]. Comment on above: Patient Position: Sitting; Cuff Location : Left Arm; Cuff Size: Standard 08-13-2022 13:42-0400 Heart rate 70 /min Hector Parnell MD Work Phone: [facility]. Comment on above: Pattern: Regular 08-13-2022 13:42-0400 Systolic blood pressure 153 mm[Hg] Hector Parnell MD Work Phone: [facility].; [facility]. Comment on above: Patient Position: Sitting; Cuff Location : Left Arm; Cuff Size: Standard 02-06-2022 11:21-0400 Body height 176.53 cm Hector Parnell MD Work Phone: [facility]. 02-06-2022 11:21-0400 Body mass index (BMI) [Ratio] 38.57 kg/m2 Hector Parnell MD Work Phone: [facility].; [facility]. 02-06-2022 11:21-0400 Body surface area Derived from formula 2.34 m2 Hector Parnell MD Work Phone: [facility].; [facility]. 02-06-2022 11:21-0400 Body weight 120.2 kg Hector Parnell MD Work Phone: [facility].; [facility]. 02-06-2022 11:21-0400 Diastolic blood pressure 84 mm[Hg] Hector Parnell MD Work Phone: [facility].; [facility]. Comment on above: Patient Position: Sitting; Cuff Location : Left Arm; Cuff Size: Large 02-06-2022 11:21-0400 Heart rate 96 /min Hector Parnell MD Work Phone: [facility].; [facility]. Comment on above: Pattern: Regular 02-06-2022 11:21-0400 Systolic blood pressure 126 mm[Hg] Hector Parnell MD Work Phone: [facility].; [facility]. Comment on above: Patient Position: Sitting; Cuff Location : Left Arm; Cuff Size: Large 08-14-2021 [id number] Body height 176.53 cm Marii Mckeon LPN [facility] [place] [employer] [facility] 08-14-2021 14:31-0400 Body mass index (BMI) [Ratio] 39.15 kg/m2 Marii Mckeon TRACK WATCHMAN [facility] [email or web address] 08-14-2021 14:31-0400 Body surface area Derived from formula 2.36 m2 Marii Mckeon LPN [facility] [employer], [employer]. 08-14-2021 [id number] Body weight 122.02 kg Marii Mckeon LPN [facility] [employer], [employer]. 08-14-2021 14:31-0400 Diastolic blood pressure 94 mm[Hg] Marii Mckeon LPN [facility] [employer], [employer]. Comment on above: Patient Position: Sitting; Cuff Location : Left Arm; Cuff Size: Large 08-14-2021 14:31-0400 Heart rate 93 /min Marii Mckeon LPN [facility] [employer], [employer]. Comment on above: Pattern: Regular 08-14-2021 14:31-0400 Systolic blood pressure 146 mm[Hg] Marii Mckeon LPN [facility] [employer], [employer]. Comment on above: Patient Position: Sitting; Cuff Location : Left Arm; Cuff Size: Large 03-06-2021 13:130400 Body height 176.53 cm Marii Mckeon LPN [facility] [employer], [employer]. 03-06-2021 13:13-0400 Body mass index (BMI) [Ratio] 42.07 kg/m2 Marii Mckeon TRACK WATCHMAN [facility] [email or web address] 03-06-2021 13:130400 Body surface area Derived from formula 2.43 m2 Marii Mckeon TRACK WATCHMAN [place] [employer] [facility] [employer] 03-06-2021 13:13-0400 Body weight 131.09 kg Marii Mckeon TRACK WATCHMAN [facility] [employer], [employer]. 03-06-2021 13:13-0400 Diastolic blood pressure 96 mm[Hg] Marii Mckeon LPN [facility] [employer]. Comment on above: Patient Position: Sitting; Cuff Location : Left Arm; Cuff Size: Large 03-06-2021 13:13-0400 Heart rate 85 /min Marii Mckeon [facility] [employer], [employer]. Comment on above: Pattern: Regular 03-06-2021 13:13-0400 Inhaled oxygen concentration 20 % Marii [facility] [employer], [employer]. Comment on above: Room air 03-06-2021 13:13-0400 Inhaled oxygen concentration 21 % Marii Mckeon [facility], [facility] [employer], [employer]. Comment on above: Room air 03-06-2021 13:13-0400 SaO2% (BldA) [Mass fraction] 97 % Marii Mckeon [facility], [facility] [employer], [employer]. 03-06-2021 13:13-0400 Systolic blood pressure 144 mm[Hg] Marii Mckeon [facility] [employer], [employer]. Comment on above: Patient Position: Sitting; Cuff Location : Left Arm; Cuff Size: Large 02-15-2021 06:58-0400 Body height 176.53 cm Hector Parnell MD Work Phone: [facility], [employer].; [employer]. 02-15-2021 06:58-0400 Body mass index (BMI) [Ratio] 42.07 kg/m2 Hector Parnell MD Work Phone: [facility], [employer].; [employer]. 02-15-2021 06:58-0400 Body surface area Derived from formula 2.43 m2 Hector Parnell MD Work Phone: [employer]. 02-15-2021 06:58-0400 Body weight 131.09 kg Hector Parnell MD Work Phone: [employer].; [employer]. 02-15-2021 06:58-0400 Diastolic blood pressure 82 mm[Hg] Hector Parnell MD Work Phone: [employer].; [employer]. Comment on above: Patient Position: Sitting; Cuff Location : Left Arm; Cuff Size: Large 02-15-2021 06:58-0400 Heart rate 99 /min Hector Parnell MD Work Phone: [employer].; [employer]. Comment on above: Pattern: Regular 02-15-2021 06:58-0400 Systolic blood pressure 130 mm[Hg] Hector Parnell MD Work Phone: [employer].; [employer]. Comment on above: Patient Position: Sitting; Cuff Location : Left Arm; Cuff Size: Large 08-12-2020 06:57-0400 Body height 176.53 cm Lori Batista RN [employer].; [employer]. 08-12-2020 06:57-0400 Body mass index (BMI) [Ratio] 42.21 kg/m2 Lori Batista RN [employer].; [employer]. 08-12-2020 06:57-0400 Body surface area Derived from formula 2.43 m2 Lori Batista RN [employer].; [employer]. 08-12-2020 06:57-0400 Body weight 131.54 kg Lori Batista RN [employer].; [employer]. 08-12-2020 06:57-0400 Diastolic blood pressure 74 mm[Hg] Lori Batista RN [employer].; [employer]. Comment on above: Patient Position: Sitting; Cuff Location : Right Arm; Cuff Size: Large 08-12-2020 06:57-0400 Heart rate 79 /min Lori Batista RN [facility], [facility].; [email or web address], [employer]. Comment on above: Pattern: Regular 08-12-2020 06:57-0400 Systolic blood pressure 123 mm[Hg] Lori Batista RN [facility], [facility].; [place] [employer] Comment on above: Patient Position: Sitting; Cuff Location : Right Arm; Cuff Size: Large 04-06-2020 07:27-0400 Body height 176.53 cm Marii Mckeon LPN [facility], [employer].; [email or web address], [employer]. 04-06-2020 07:27-0400 Body mass index (BMI) [Ratio] 44.39 kg/m2 Marii Mckeon LPN [facility], [facility].; [place] [employer] [facility] 04-06-2020 07:27-0400 Body surface area Derived from formula 2.48 m2 Olivia Stuckey TRACK WATCHMAN [facility], [facility].; [place] [employer] [facility], [facility]. 04-06-2020 07:27-0400 Body weight 138.35 kg Marii Mckeon LPN [facility], [facility].; [email or web address], [employer]. 04-06-2020 07:27-0400 Diastolic blood pressure 99 mm[Hg] Marii Mckeon LPN [facility], [facility].; [email or web address], [employer]. Comment on above: Patient Position: Sitting; Cuff Location : Left Arm; Cuff Size: Large 04-06-2020 07:27-0400 Heart rate 81 /min Marii Mckeon LPN [facility], [employer].; [email or web address], [employer]. Comment on above: Pattern: Regular 04-06-2020 07:27-0400 Systolic blood pressure 165 mm[Hg] Marii Mckeon LPN [facility], [employer].; [email or web address], [employer]. Comment on above: Patient Position: Sitting; Cuff Location : Left Arm; Cuff Size: Large 12-11-2019 13:23-0500 Body height 176.53 cm Angelica Mendez LPN Work Phone: [place] [employer] [facility] Communication.; [employer]. 12-11-2019 13:23-0500 Body mass index (BMI) [Ratio] 46.87 kg/m2 Angelica Mendez LPN Work Phone: [employer]; [employer]. 12-11-2019 13:23-0500 Body surface area Derived from formula 2.54 m2 Angelica Mendez LPN Work Phone: [employer]; [employer]. 12-11-2019 13:23-0500 Body weight 146.06 kg Angelica Mendez LPN Work Phone: [employer]; [employer]. 12-11-2019 13:23-0500 Diastolic blood pressure 85 mm[Hg] Angelica Mendez LPN Work Phone: [employer]; [employer]. Comment on above: Patient Position: Sitting; Cuff Location : Left Arm; Cuff Size: Standard 12-11-2019 13:23-0500 Heart rate 91 /min Angelica Andrea LPN Work Phone: [employer]; [employer]. Comment on above: Pattern: Regular 12-11-2019 13:23-0500 Systolic blood pressure 137 mm[Hg] Angelica Mendez LPN Work Phone: [employer]; [employer]. Comment on above: Patient Position: Sitting; Cuff Location : Left Arm; Cuff Size: Standard 10-17-2019 08:57-0500 Diastolic blood pressure 77 mm[Hg] Hector Parnell MD Work Phone: [employer]; [employer]. Comment on above: Patient Position: Sitting; Cuff Location : Right Arm; Cuff Size: Standard 10-17-2019 08:57-0500 Heart rate 90 /min Hector Parnell MD Work Phone: [employer]; [employer]. Comment on above: Pattern: Regular 10-17-2019 08:57-0500 Systolic blood pressure 129 mm[Hg] Hector Parnell MD Work Phone: [employer]; [facility] Comment on above: Patient Position: Sitting; Cuff Location : Right Arm; Cuff Size: Standard 10-05-2019 16:01-0500 Body height 176.53 cm Angelica Mendez LPN Work Phone: [employer].; [employer] 10-05-2019 16:01-0500 Body mass index (BMI) [Ratio] 46.87 kg/m2 Angelica Andrea TRACK WATCHMAN Work Phone: [employer].; [employer] 10-05-2019 16:01-0500 Body surface area Derived from formula 2.54 m2 Angelica Andrea TRACK WATCHMAN Work Phone: [employer].; [employer]. 10-05-2019 16:01-0500 Body weight 146.06 kg Angelica Andrea TRACK WATCHMAN Work Phone: [employer].; [employer]. 10-05-2019 16:01-0500 Diastolic blood pressure 105 mm[Hg] Angelica Andrea TR[employer] WATCHMAN Work Phone: [employer].; [employer]. Comment on above: Patient Position: Sitting; Cuff Location : Left Arm; Cuff Size: Large 10-05-2019 16:01-0500 Heart rate 99 /min Angelica Andrea TRACK WATCHMAN Work Phone: [employer].; [employer]. Comment on above: Pattern: Regular 10-05-2019 16:01-0500 Systolic blood pressure 177 mm[Hg] Angelica Munozy TRACK WATCHMAN Work Phone: [employer].; [employer]. Comment on above: Patient Position: Sitting; Cuff Location : Left Arm; Cuff Size: Large 07-07-2019 11:39-0400 Body height 176.53 cm [facility] [employer].; [employer]. 07-07-2019 11:39-0400 Body mass index (BMI) [Ratio] 46.87 kg/m2 Olivia Haslet [facility], [employer].; [employer]. 07-07-2019 11:39-0400 Body surface area Derived from formula 2.54 m2 Marii Mckeon TRACK WATCHMAN [facility], [employer].; [employer]. 07-07-2019 11:39-0400 Body temperature 98.4 [degF] Marii Mckeon [facility], [facility] [employer]. Comment on above: Method: Tympanic 07-07-2019 11:39-0400 Body weight 146.06 kg Marii Mckeon TR[employer] WATCHMAN [facility], [employer] [employer]. 07-07-2019 11:39-0400 Diastolic blood pressure 111 mm[Hg] Marii Mckeon [facility] [employer]. Comment on above: Patient Position: Sitting; Cuff Location : Left Arm; Cuff Size: Large 07-07-2019 11:39-0400 Heart rate 77 /min Marii Mckeon [facility], [employer].; [employer]. Comment on above: Pattern: Regular 07-07-2019 11:39-0400 Inhaled oxygen concentration 20 % Marii Mckeon [facility], [employer].; [employer]. Comment on above: Room air 07-07-2019 11:39-0400 Inhaled oxygen concentration 21 % Marii Mckeon [facility] [employer] [facility], [employer].; [employer]. Comment on above: Room air 07-07-2019 11:39-0400 SaO2% (BldA) [Mass fraction] 97 % Marii Mckeon [facility] [employer] [facility] Hospital[facility]ite[facility] Communication.; [employer]. 07-07-2019 11:39-0400 Systolic blood pressure 160 mm[Hg] [facility].; [employer]. Comment on above: Patient Position: Sitting; Cuff Location : Left Arm; Cuff Size: Large 01-31-2019 10:03-0400 Body height 176.53 cm Hector Parnell MD Work Phone: [place] [employer] [facility] Communication.; [employer]. 01-31-2019 10:03-0400 Body mass index (BMI) [Ratio] 44.83 kg/m2 Hector Parnell MD Work Phone: [employer].; [employer] 01-31-2019 10:03-0400 Body surface area Derived from formula 2.49 m2 Hector Parnell MD Work Phone: [employer].; [employer]. 01-31-2019 10:03-0400 Body temperature 101.6 [degF] Hector Parnell MD Work Phone: [employer].; [employer]. Comment on above: Method: Tympanic 01-31-2019 10:030400 Body weight 139.71 kg Hector Parnell MD Work Phone: [employer].; [employer]. 01-31-2019 10:03-0400 Diastolic blood pressure 90 mm[Hg] Hector Parnell MD Work Phone: [employer]; [employer]. Comment on above: Patient Position: Sitting; Cuff Location : Right Arm; Cuff Size: Standard 01-31-2019 10:030400 Heart rate 98 /min Hector Parnell MD Work Phone: [employer]; [employer]. Comment on above: Pattern: Regular 01-31-2019 10:03-0400 Systolic blood pressure 147 mm[Hg] Hector Parnell MD Work Phone: [employer].; [employer]. Comment on above: Patient Position: Sitting; Cuff Location : Right Arm; Cuff Size: Standard 07-18-2018 13:22-0400 Body height 176.53 cm Lori Batista RN [employer].; [employer]. 07-18-2018 13:22-0400 Body mass index (BMI) [Ratio] 44.69 kg/m2 Lori Batista RN [employer].; [employer]. 07-18-2018 13:22-0400 Body surface area Derived from formula 2.49 m2 Lori Batista RN [employer] 07-18-2018 13:22-0400 Body temperature 98.1 [degF] Lori Batista RN [employer], [employer].; [employer], [employer]. Comment on above: Method: Tympanic 07-18-2018 13:22-0400 Body weight 139.26 kg Lori Batista RN [place] [employer] [facility], [employer].; [employer] 07-18-2018 13:22-0400 Diastolic blood pressure 101 mm[Hg] Lori Batista RN [email or web address], [employer].; [employer] Comment on above: Patient Position: Sitting; Cuff Location : Left Arm; Cuff Size: Large 07-18-2018 13:22-0400 Heart rate 84 /min Lori Batista RN [employer], [employer].; [employer]. Comment on above: Pattern: Regular 07-18-2018 13:22-0400 Systolic blood pressure 160 mm[Hg] Lori Batista RN [email or web address]. Comment on above: Patient Position: Sitting; Cuff Location : Left Arm; Cuff Size: Large 02-18-2018 13:46-0400 Body height 176.53 cm Marii Mckeon LPN [employer] [facility], [employer].; [employer] 02-18-2018 13:46-0400 Body mass index (BMI) [Ratio] 44.83 kg/m2 Marii Mckeon LPN [employer] [facility], [employer].; [employer] 02-18-2018 13:46-0400 Body surface area Derived from formula 2.49 m2 Marii Mckeon LPN [email or web address], [employer]. 02-18-2018 13:46-0400 Body weight 139.71 kg Marii Mckeon LPN [email or web address] 02-18-2018 13:46-0400 Diastolic blood pressure 108 mm[Hg] Marii Mckeon LPN [email or web address] Comment on above: Patient Position: Sitting; Cuff Location : Left Arm; Cuff Size: Large 02-18-2018 13:46-0400 Heart rate 93 /min Marii Mckeon [facility] [employer] [facility], [employer] Comment on above: Pattern: Regular 02-18-2018 13:46-0400 Systolic blood pressure 178 mm[Hg] Marii Mckeon [place] [facility] [email or web address] Comment on above: Patient Position: Sitting; Cuff Location : Left Arm; Cuff Size: Large 04-04-2016 09:29-0400 Body temperature 98 [degF] Yasmeen Michelle [facility] [employer], [employer]. Comment on above: Method: Tympanic 04-04-2016 09:29-0400 Body weight 131.54 kg Yasmeen Martinez [facility] [email or web address], Inc.; [employer] 04-04-2016 09:29-0400 Diastolic blood pressure 90 mm[Hg] Yasmeen Michelle REES[facility] [email or web address], Inc.; [employer] Comment on above: Patient Position: Sitting; Cuff Location : Left Arm; Cuff Size: Standard 04-04-2016 09:29-0400 Heart rate 65 /min Yasmeen Martinez LPN [place] [employer] Comment on above: Pattern: Regular 04-04-2016 09:29-0400 Systolic blood pressure 136 mm[Hg] Yasmeen Michelle BLANCAS [email or web address] Comment on above: Patient Position: Sitting; Cuff Location : Left Arm; Cuff Size: Standard 01-16-2016 13:27-0400 Body temperature 97.5 [degF] Estella Randhawa LPN [email or web address] 01-16-2016 13:27-0400 Body weight 133.36 kg Estella Randhawa LPN [email or web address], [employer]. 01-16-2016 13:27-0400 Diastolic blood pressure 95 mm[Hg] Estella [facility]awa LPN [facility] [employer] [facility] HospitalUniteam Communication. Comment on above: Patient Position: Sitting; Cuff Location : Left Arm; Cuff Size: Standard 01-16-2016 13:27-0400 Heart rate 80 /min Estella Randhawa LPN [facility], [facility].; [employer]. Comment on above: Pattern: Regular 01-16-2016 13:27-0400 Inhaled oxygen concentration 20 % Estella Randhawa LPN [facility], [employer].; [employer]. Comment on above: Room air 01-16-2016 13:27-0400 Inhaled oxygen concentration 21 % Estella Randhawa LPN [facility], [employer].; [employer]. Comment on above: Room air 01-16-2016 13:27-0400 SaO2% (BldA) [Mass fraction] 97 % Estella Randhawa LPN [facility], [facility].; [employer]. 01-16-2016 13:27-0400 Systolic blood pressure 155 mm[Hg] Estella Randhawa LPN [facility], [employer].; [employer]. Comment on above: Patient Position: Sitting; Cuff Location : Left Arm; Cuff Size: Standard 12-24-2015 09:35-0500 Body temperature 99.3 [degF] Hector Parnell MD Work Phone: [facility], [employer].; [employer]. Comment on above: Method: Tympanic 12-24-2015 09:35-0500 Body weight 136.08 kg Hector Parnell MD Work Phone: [facility] [employer].; [employer]. 12-24-2015 09:35-0500 Diastolic blood pressure 91 mm[Hg] Hector Parnell MD Work Phone: [place] [employer] [facility] Hospital[facility] Communication.; [employer]. Comment on above: Patient Position: Sitting; Cuff Location : Left Arm; Cuff Size: Standard 12-24-2015 09:35-0500 Heart rate 93 /min Hector Parnell MD Work Phone: [facility], [employer].; [employer]. Comment on above: Pattern: Regular 12-24-2015 09:35-0500 Inhaled oxygen concentration 20 % Hector Parnell MD Work Phone: [place] [employer].; [employer]. Comment on above: Room air 12-24-2015 09:35-0500 Inhaled oxygen concentration 21 % Hector Parnell MD Work Phone: [place] [employer] [facility] HospitalUn[facility] Communication.; [employer]. Comment on above: Room air 12-24-2015 09:35-0500 SaO2% (BldA) [Mass fraction] 97 % Hector Parnell MD Work Phone: [place] [employer].; [employer]. 12-24-2015 09:35-0500 Systolic blood pressure 180 mm[Hg] Hector Parnell MD Work Phone: [employer].; [employer]. Comment on above: Patient Position: Sitting; Cuff Location : Left Arm; Cuff Size: Standard 04-02-2015 09:17-0400 Body weight 136.99 kg Yasmeen Martinez LPN [place] [employer] [facility] Hospital[facility] Communication.; [employer]. 04-02-2015 09:17-0400 Diastolic blood pressure 90 mm[Hg] Yasmeen Martinez LPN [employer].; [employer]. Comment on above: Patient Position: Sitting; Cuff Location : Left Arm; Cuff Size: Standard 04-02-2015 09:17-0400 Heart rate 73 /min Yasmeen Martinez LPN [employer].; [employer]. Comment on above: Pattern: Regular 04-02-2015 09:17-0400 Systolic blood pressure 145 mm[Hg] Yasmeen Martinez LPN [employer].; [employer]. Comment on above: Patient Position: Sitting; Cuff Location : Left Arm; Cuff Size: Standard Encounters Encounter Date Encounter Type Care Provider Facility Start: 08-08-2025 End: 08-09-2025 Emergency department patient visit MICHAEL SCHOFIELD [facility] Start: 08-17-2024 End: 08-17-2024 Periodic preventive med est patient 18-39 yrs Hector Parnell MD Work Phone: [employer]. Start: 08-17-2024 End: 08-17-2024 Physical examination Hector Parnell MD Work Phone: [employer].; [employer] Start: 08-17-2024 Review Hector Parnell MD Work Phone: [employer]. Start: 08-19-2023 End: 08-19-2023 Office outpatient visit 15 minutes Hector Parnell MD Work Phone: [employer]. Start: 12-31-2022 End: 12-31-2022 Phone Encounter Hector Parnell MD Work Phone: [employer]. Start: 12-28-2022 End: 12-28-2022 Orders Hector Parnell MD Work Phone: [employer]. Start: 12-28-2022 End: 12-28-2022 Office outpatient visit 15 minutes Hector Parnell MD Work Phone: [employer]. Start: 11-26-2022 End: 11-26-2022 Office outpatient visit 15 minutes Hector Parnell MD Work Phone: [employer]. Start: 08-13-2022 End: 08-13-2022 Office outpatient visit 15 minutes Hector Parnell MD Work Phone: [employer]. Start: 03-02-2022 End: 03-02-2022 Medication Hector Parnell MD Work Phone: [employer]. Start: 02-06-2022 End: 02-06-2022 Telephone follow-up Hector Parnell MD Work Phone: [employer]. Start: 02-06-2022 End: 02-06-2022 Office outpatient visit 15 minutes Hector Parnell MD Work Phone: [employer]. Start: 08-14-2021 End: 08-14-2021 Office outpatient visit 15 minutes Hector Parnell MD Work Phone: [employer]. Start: 07-06-2021 End: 07-11-2021 Orders Hector Parnell MD Work Phone: [employer]. Start: 03-06-2021 End: 03-06-2021 Office outpatient visit 15 minutes Hector Parnell MD Work Phone: [employer]. Start: 02-15-2021 End: 02-15-2021 Office outpatient visit 15 minutes Hector Parnell MD Work Phone: [employer] Start: 08-12-2020 End: 08-12-2020 Patient encounter procedure Hector Parnell MD Work Phone: [employer]. Start: 05-12-2020 End: 05-12-2020 Follow-up encounter Hector Parnell MD Work Phone: [employer] Start: 04-06-2020 End: 04-06-2020 Office outpatient visit 15 minutes Hector Parnell MD Work Phone: [employer]. Start: 12-25-2019 End: 12-25-2019 Historical Summary Hector Parnell MD Work Phone: [employer]. Start: 12-11-2019 End: 12-11-2019 Procedure Hector Parnell MD Work Phone: [employer] Start: 10-17-2019 End: 10-17-2019 Nursing evaluation of patient and report Hector Parnell MD Work Phone: [employer] Start: 10-05-2019 End: 10-05-2019 Office outpatient visit 15 minutes Hector Parnell MD Work Phone: [employer] Start: 07-07-2019 End: 07-07-2019 Office outpatient visit 15 minutes Hector Parnell MD Work Phone: [employer]. Start: 01-31-2019 End: 01-31-2019 Office outpatient visit 15 minutes Hector Parnell MD Work Phone: [employer] Start: 07-18-2018 End: 07-18-2018 Office outpatient visit 15 minutes Hector Parnell MD Work Phone: [employer] Start: 02-18-2018 End: 02-18-2018 Office outpatient visit 15 minutes Hector Parnell MD Work Phone: [employer] Start: 07-20-2016 End: 07-20-2016 Orders Hector Parnell MD Work Phone: [employer] Start: 06-29-2016 End: 06-29-2016 Medication Hector Parnell MD Work Phone: [employer] Start: 05-25-2016 End: 05-25-2016 Medication Hector Parnell MD Work Phone: [employer] Start: 04-04-2016 End: 04-04-2016 Patient encounter procedure Hector Parnell MD Work Phone: [employer] Start: 01-16-2016 End: 01-16-2016 Office outpatient visit 15 minutes Hector Parnell MD Work Phone: [employer] Start: 12-24-2015 End: 12-25-2015 Patient encounter procedure Hector Parnell MD Work Phone: [employer] Start: 04-02-2015 End: 04-02-2015 Patient encounter procedure Hector Parnell MD Work Phone: [employer] Procedures Date Procedure Procedure Detail Performing Clinician Start: 08-17-2024 End: 08-17-2024 Depression screening Hector Parnell MD Work Phone: Start: 08-17-2024 End: 08-17-2024 Flu imm no admin doc candelaria Hector Ash Work Phone: Start: 08-17-2024 End: 08-17-2024 Scr dep neg, no plan reqd Hector Parnell MD Work Phone: Start: 12-28-2022 End: 12-31-2022 Chest x-ray Eladio Ash Work Phone: Start: 08-14-2021 End: 08-21-2021 Ecg routine ecg w/least 12 lds i&r only Hector Parnell MD Work Phone: Start: 08-12-2020 End: 08-12-2020 Flu imm no admin doc candelaria Hector Ash Work Phone: Start: 12-11-2019 End: 12-11-2019 Vasectomy Lori Batista RN Start: 12-11-2019 End: 12-11-2019 Vasectomy uni/bi spx w/postop semen exams Eladio Remy MD Work Phone: Start: 10-05-2019 End: 10-12-2019 Ecg routine ecg w/least 12 lds i&r only Eladio Remy MD Work Phone: Comment on above: NSR Start: 02-18-2018 End: 02-18-2018 Body mass index documented Hector Parnell MD Work Phone: H/O: vasectomy H/O vasectomy Kennedy Kitchen TRACK WATCHMAN H/O: vasectomy H/O vasectomy Ai Bustos TRACK WATCHMAN Plan of Treatment Date Care Activity Detail Author Start: 08-17-2024 Patient encounter procedure Medical; PHYSICAL - AWV [employer]. Start: 17-Aug-2024 15:00-04:00 MD Hector Parnell Appointment Request [employer]. Start: 08-14-2021 End: 08-14-2021 Myocardial spect multiple studies Exercise Cardiolite Stress Test Date: 14-Aug-2021 [employer] [employer]. Payers Date Payer Category Payer Unknown [id number] Unknown [employer] Unknown [id number] Social History Date Type Detail Facility Alcohol Use: Alcohol Use: ; M oderate alcohol use. [employer].; [facility] Tobacco Use: Tobacco Use: ; C urrent every day smoker. [employer].; [employer], [employer]. Male [facility] [facility].; [employer]. Work Phone: Moderate alcohol use [employer].; [employer]. Work Phone: Smokes tobacco daily [facility].; [facility] Work Phone: Summary Purpose Family History No Family History Records FoundNo Family History Records Found Advance Directives No Advanced Directives Records FoundNo Advanced Directives Records Found Additional Source Comments (unrecognized sect ion and content) No Status Records FoundNo Status Records Found INFORMATION SOURCE (unrecogn ized section and content) DATE CREATED AUTHOR 09/01/2020 [facility] DATE CREATED AUTHOR AUTHOR'S ORGANIZ ATION 08/11/2025 [facility] FOR RECORDS PERTAINING TO PATIENTS WHO ARE OR HAVE BEEN ENROLLED IN A CHEMICAL DEPENDENCY/SUBSTANCEABUSE PROGRAM, SOME INFORMATION MAY BE OMITTED. This clinical summary was aggregated from multiple sources. Caution should be exercised in using it in the provision of clinical care. This summary normalizes information from multiple sources, and as a consequence, information in this document may materially change the coding, format and clinical context of patient data. In addition, data may be omitted in some cases. CLINICAL DECISIONS SHOULD BE BASED ON THE PRIMARY CLINICAL RECORDS. [employer] provides no warranty or guarantee of the accuracy or completeness of information in this document.
[2025-10-10 12:03] LABS: AST(SGOT) 115 U/L (<=37); Alanine Aminotransfer ALT/SGPT 107 U/L (<=46); Albumin, Serum 4.5 g/dL (3.5-5.0); Alkaline Phosphatase 69 U/L (40-129); Anion Gap 19 (5-15); BUN 5 mg/dL (4-19); BUN/Creat Ratio 6.8 RATIO (10-20); Calcium,Total 9.7 mg/dL (7.6-11.0); Carbon Dioxide 28.1 mmol/L (21.0-32.0); Chloride 86 mmol/L (98-108); Estimated Creatinine Clearance 157.16 ml/min (50-250); Globulin 3.1 g/dL (2.2-4.2); Glucose 112 mg/dL (70-99); Potassium 3.8 mmol/L (3.3-5.1)
[2025-10-10 12:14] LABS: Lipase 511 U/L (13-75)
--- NOTE | 2025-10-10 12:55 | HP.PCM.HOS_ITS ---
HPI - General General Date of Admission: 10/10/25 Date of Service: 10/10/25 Chief Complaint: Abdominal pain HPI Narrative CARLOTTA EVANGELISTA, is a 39 M who presented to the emergency department at [facility] on 10/10/2025 with a chief complaint of abdominal pain. Patient states he has been having symptoms for about a week but really acutely got worse in the last 24 hours with epigastric and right upper quadrant pain that radiated to his back. He drinks alcohol at least 20-30 Martín lights daily. He stated about a week ago he reached out to a friend who had success with sobriety and was planning to be admitted to a rehab facility on Saturday however his pain was so severe that he decided to be evaluated here at the emergency department today. He has had some associated nausea and vomiting. He has not really had much to eat in the last 3 days. He has never gone through detox before. Vital signs on presentation showed temperature 98.2, heart rate 71, respiratory 16, blood pressure was 184/111 and pulse ox was 98% on room air. CBC shows a mild leukocytosis white count 11.1 and thrombocytopenia with a platelet count of 88,000. His hemoglobin is elevated at 16.9. We have no previous lab for comparison. Coags were normal. Chemistry panel showed hyperchloride EMEA and an elevated anion gap with a total bilirubin of 1.81 and AST of 115 and ALT of 107. Lipase was 511. Urinalysis was unremarkable toxicology was negative. Blood alcohol level was 130. CT of the abdomen pelvis showed acute pancreatitis without signs of necrosis or pseudocyst, hepatomegaly with diffuse hepatic steatosis and multifocal right lung opacities. Imaging was reviewed by me and the pulmonary opacities are minimal with patient's exam and complaints/vitals not consistent with pneumonia. Patient was treated with IV fluids and antiemetics with pain medication in the emergency department. [facility] Medical History (Updated 10/10/25 @ 14:[address] Sue Santamaria DO) Tobacco abuse ETOH abuse Hypertension Home Medications ?Medication ?Instructions ?Recorded ?Last Taken ?Type NK 10/10/25 Unknown History Allergy/AdvReac Type Severity Reaction Status Date / Time No Known Allergies Allergy Verified 10/10/25 10:47 no significant family history Surgical History Hx of hand surgery Social History (Updated 10/10/25 @ 14:[address] Sue Santamaria DO) household members: none current occupational status: employed Smoking Status: Current every day smoker tobacco type: cigarettes alcohol intake: current alcohol intake frequency: 3 or more drinks per day details: Patient drinks 20-30 beers daily substance use type: does not use ROS Constitutional Constitutional: Reports anorexia; Denies change in weight, chills, fatigue, fever(s), malaise, night sweats, weakness or other Eyes Eyes: Denies blurry vision, change in eye color, change in vision, discharge from eye(s), double vision, erythema, eye pain, loss of vision or other ENT HEENT: Denies abnormal hearing, dysphagia, ear pain, epistaxis, headache(s), hearing loss, nasal congestion, nasal discharge, post nasal drip, sinus pressure, sore throat or other Cardiovascular Cardiovascular: Denies chest pain, claudication, dyspnea on exertion, edema, lightheadedness, orthopnea, palpitations, paroxysmal nocturnal dyspnea, rapid heart rate, syncope or other Respiratory/Chest Respiratory/Chest: Denies cough, dyspnea, excessive phlegm production, hemoptysis, productive cough, shortness of breath at rest, shortness of breath with exertion, wheezing or other Gastrointestinal Gastrointestinal: Reports abdominal pain, nausea and vomiting; Denies coffee ground emesis, constipation, diarrhea, dyspepsia, hematemesis, hematochezia, loose stools, melena or other Genitourinary Genitourinary: Denies burning urination, difficulty urinating, dysuria, hematuria, nocturia, urinary frequency, urinary hesitancy, urinary incontinence, urinary urgency or other Musculoskeletal Musculoskeletal: Reports back pain; Denies arthralgias, joint pain, joint stiffness, joint swelling, myalgias, neck pain or other Neurologic Neurologic: Denies abnormal gait, abnormal speech, confusion, disequilibrium, dizziness, focal weakness, headache(s), numbness, paresthesias, seizure-like activity, seizures, syncope, tingling, tremor(s) or other Psychiatric Psychiatric: Denies anxiety, depression, homicidal ideation, suicidal ideation or other Endocrine Endocrinology: Denies change in body appearance, cold intolerance, excessive sweating, heat intolerance, polydipsia, polyuria or other Hematologic/Lymphatic Hematologic/Lymphatic: Denies anemia, easy bleeding, easy bruising, lymphadenopathy or other Allergic/Immunologic Allergic/Immunologic: Denies rhinitis, hives, eczemia, asthma or other Vital Signs Vital Signs Vital Signs: 10/10/25 10:44 10/10/25 12:24 Temperature 98.2 F Temperature Source Oral Pulse Rate 71 65 Respiratory Rate 16 18 Blood Pressure 184/115 H 195/110 H Blood Pressure Mean 138 138 Pulse Ox 98 100 Oxygen Delivery Method Room Air Room Air Weight Weight: 89.358 kg Body Mass Index (BMI) 28.3 Physical Exam Const alert, oriented x3, no apparent distress and well nourished; Negative for average body habitus or healthy appearing Constitutional Narrative: Overweight, middle-aged, white male, sitting up in bed, appears comfortable currently, does not look toxic, appears older than stated age General Appearance: cooperative HEENT normocephalic, head/scalp atraumatic and hearing grossly normal bilaterally HEENT Narrative: Mallampati 3, no thrush Eyes conjunctivae normal Eyes Narrative: No scleral icterus Neck supple Neck Narrative: Trachea midline Resp normal respiratory effort, no retractions, no use of accessory muscles and clear to auscultation bilaterally Resp Narrative: Diminished but clear Auscultation: Negative for crackles, rhonchi or wheezes Cardio regular rate, regular rhythm, S1 normal heart sound, S2 normal heart sound, no murmurs, no rub, no gallops and no clicks GI normal to inspection, nondistended, normoactive bowel sounds, soft to palpation and non-tender Extremity no clubbing, cyanosis or edema Extremity Narrative: 2+ pedal and radial pulses Skin Skin Narrative: Signs of sun exposure Neuro moves all extremities and no focal motor deficits Speech: speech normal Psych affect normal Psych Narrative: Very pleasant, interacts appropriately Results Lab / Micro Data 10/10/25 11:20 10/10/25 11:20 Labs: Laboratory Results - last 24 hr 10/10/25 11:20: WBC 11.1 H, RBC 5.20, Hgb 16.9 H, Hct 46.8, MCV 90.0, MCH 32.5 H , MCHC 36.1 H, RDW Std Deviation 38.7, RDW Coeff of Lindsay 11.8, Plt Count 88 L, MPV 10.9, Immature Gran % (Auto) 0.500, Neut % (Auto) 84.1 H, Lymph % (Auto) 7.0 L, [place] % (Auto) 7.6, Eos % (Auto) 0.3, Baso % (Auto) 0.5, Absolute Neuts (auto) 9.3 H, Absolute Lymphs (auto) 0.77 L, Nucleated RBC % 0, Platelet Estimate MOD DEC, PT 12.6, INR 0.9, APTT 25.7, Sodium 133, Potassium 3.8, Chloride 86 L, Carbon Dioxide 28.1, Anion Gap 19 H, BUN 5, Creatinine 0.71, Estim Creat Clear Calc 157.16, Est GFR (MDRD) Non-Af 120, BUN/Creatinine Ratio 6.8 L, Glucose 112 H, Calcium 9.7, Total Bilirubin 1.81 H, AST 115 H, ALT 107 H, Alkaline Phosphatase 69, Total Protein 7.6, Albumin 4.5, Globulin 3.1, Albumin/Globulin Ratio 1.4, Lipase 511 H 10/10/25 11:45: Urine Color Yellow, Urine Clarity Clear, Urine pH 7.0, Ur Specific [place] 1.005, Urine Protein 30 H, Urine Glucose (UA) Normal, Urine Ketones 5 H, Urine Occult Blood 10 H, Urine Nitrite Negative, Urine Bilirubin Negative, Urine Urobilinogen 4 H, Ur Leukocyte Esterase Negative, Urine RBC 0 SEEN, Urine WBC 0 SEEN, Ur Squamous Epith Cells 0 SEEN, Urine Bacteria 0 SEEN, Urine Mucus 0 SEEN Assessment & Plan Assessment/Plan (1) Alcohol withdrawal: (2) Acute pancreatitis: (3) Hypertension: (4) Thrombocytopenia: (5) Alcoholic hepatitis: (6) Hyperbilirubinemia: (7) High anion gap: PLAN: Plan Acute pancreatitis secondary to alcohol use - Lipase elevated, exam consistent with pancreatitis, and CT consistent with pancreatitis - Clear liquid diet for now and advance as able letting pain be guide - IV fluids with LR at 200 cc/h - As needed opiates - As needed Toradol--> will need to watch platelet count closely and discontinue if platelet count continues to drop - Protonix 40 mg IV daily - As needed antiemetics Alcohol intoxication with pending withdrawal - Patient reached out last week for assistance with detox -Intoxicated legally on presentation - Interested in attaining and maintaining sobriety - Phenobarbital taper - Thiamine and folate - As needed medications for symptom management - CIWA with as needed Ativan - 180 consultation for assistance with discharge planning as patient is supposed to check into a residential program on Saturday - Case management/social work consultation for assistance with discharge planning Thrombocytopenia - Suspect acute related to marrow suppression from alcohol use - Will trend - coags are normal - Monitor closely and if drops will need to discontinue as needed Toradol for pancreatitis Elevated anion gap - Secondary to alcohol use - Should trend down on repeat once clears alcohol Alcoholic hepatitis/hyperbilirubinemia - Liver enzymes should slowly improve with alcohol cessation - Imaging does show hepatic steatosis but no signs of cirrhosis at this time - Repeat lab in a.m. Elevated blood pressure without diagnosis of hypertension - May be related to acute withdrawal - As needed hydralazine available for systolic blood pressure greater than 160 - Trend and if persistently elevated may need to add medication Tobacco abuse - Patient smokes 1 to 1/2 packs daily - Recommend cessation - Nicotine patch available - Nicotine gum available DVT prophylaxis - Lovenox subcu daily - Low threshold to discontinue Lovenox with thrombocytopenia - would recommend discontinuation if platelet count drops below 75,000 CODE STATUS - full code Charges/Coding Visit Charges Inpatient E&M: 95712 Init Hosp L3
[2025-10-10 13:24] LABS: Alcohol, Blood (Medical)-Serum 130.0 mg/dL (<=10.0); Cholesterol 243 mg/dL (<=200); Low Density Lipoprotein Calc. 95 mg/dL; Triglycerides 81 mg/dL; Very Low Density Lipoprotein 16 mg/dL (5-40); cholesterol:hdl ratio screen 1.80
--- OUTSIDE RECORDS SUMMARY | 2025-10-10 13:25 | XMS RPT_ITS | CCD ---
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 [email or web address]. Comment on above: Pattern: Regular 03-06-2021 13:13-0400 Inhaled oxygen concentration 20 % Marii Mckeon [facility] [employer], [email or web address]. Comment on above: Room air 03-06-2021 13:13-0400 Inhaled oxygen concentration 21 % Marii Mckeon [facility] [employer], [email or web address]. Comment on above: Room air 03-06-2021 13:13-0400 SaO2% (BldA) [Mass fraction] 97 % Marii Mckeon [facility] [employer], [email or web address]. 03-06-2021 13:13-0400 Systolic blood pressure 144 mm[Hg] Marii Mckeon [facility] [employer], [email or web address]. Comment on above: Patient Position: Sitting; Cuff Location : Left Arm; Cuff Size: Large 02-15-2021 06:58-0400 Body height 176.53 cm Hector Parnell MD Work Phone: [facility], [email or web address].; [employer]. 02-15-2021 06:58-0400 Body mass index (BMI) [Ratio] 42.07 kg/m2 Hector Parnell MD Work Phone: [facility], [email or web address].; [employer]. 02-15-2021 06:58-0400 Body surface area Derived from formula 2.43 m2 Hector Parnell MD Work Phone: [employer].; [employer]. 02-15-2021 06:58-0400 Body weight 131.09 kg Hector Parnell MD Work Phone: [employer].; [employer]. 02-15-2021 06:58-0400 Diastolic blood pressure 82 mm[Hg] Hector Parnell MD Work Phone: [employer].; [employer]. Comment on above: Patient Position: Sitting; Cuff Location : Left Arm; Cuff Size: Large 02-15-2021 06:58-0400 Heart rate 99 /min Hector Parnell MD Work Phone: [employer].; [employer]. Comment on above: Pattern: Regular 02-15-2021 06:58-0400 Systolic blood pressure 130 mm[Hg] Hector Parnell MD Work Phone: [employer].; [employer]. Comment on above: Patient Position: Sitting; Cuff Location : Left Arm; Cuff Size: Large 08-12-2020 06:57-0400 Body height 176.53 cm Lori Batista RN [employer].; [employer]. 08-12-2020 06:57-0400 Body mass index (BMI) [Ratio] 42.21 kg/m2 Lori Batista RN [employer].; [employer]. 08-12-2020 06:57-0400 Body surface area Derived from formula 2.43 m2 Lori Batista RN [employer].; [employer]. 08-12-2020 06:57-0400 Body weight 131.54 kg Lori Batista RN [employer].; [employer]. 08-12-2020 06:57-0400 Diastolic blood pressure 74 mm[Hg] Lori Batista RN [employer].; [employer]. Comment on above: Patient Position: Sitting; Cuff Location : Right Arm; Cuff Size: Large 08-12-2020 06:57-0400 Heart rate 79 /min Lori Batista RN [facility] [employer], [email or web address]. Comment on above: Pattern: Regular 08-12-2020 06:57-0400 Systolic blood pressure 123 mm[Hg] Lori Batista RN [facility], [facility].; [place] [employer] Comment on above: Patient Position: Sitting; Cuff Location : Right Arm; Cuff Size: Large 04-06-2020 07:27-0400 Body height 176.53 cm Marii Mckeon LPN [facility] [employer], [email or web address]. 04-06-2020 07:27-0400 Body mass index (BMI) [Ratio] 44.39 kg/m2 Marii Mckeon LPN [facility] 04-06-2020 07:27-0400 Body surface area Derived from formula 2.48 m2 Olivia Stuckey PAINTER DECORATOR [facility], [facility].; [place] [facility], [facility]. 04-06-2020 07:27-0400 Body weight 138.35 kg Marii Mckeon LPN [facility], [facility].; [employer], [email or web address]. 04-06-2020 07:27-0400 Diastolic blood pressure 99 mm[Hg] Marii Mckeon LPN [facility], [facility].; [employer], [email or web address]. Comment on above: Patient Position: Sitting; Cuff Location : Left Arm; Cuff Size: Large 04-06-2020 07:27-0400 Heart rate 81 /min Marii Mckeon LPN [facility], [email or web address].; [employer], [email or web address]. Comment on above: Pattern: Regular 04-06-2020 07:27-0400 Systolic blood pressure 165 mm[Hg] Marii Mckeon LPN [facility], [email or web address].; [employer], [email or web address]. Comment on above: Patient Position: Sitting; Cuff Location : Left Arm; Cuff Size: Large 12-11-2019 13:23-0500 Body height 176.53 cm Angelica Mendez LPN Work Phone: [place] [facility] [employer]. 12-11-2019 13:23-0500 Body mass index (BMI) [Ratio] 46.87 kg/m2 Angelica Mendez LPN Work Phone: [employer]; [employer]. 12-11-2019 13:23-0500 Body surface area Derived from formula 2.54 m2 Angelica Mendez LPN Work Phone: [employer]; [employer]. 12-11-2019 13:23-0500 Body weight 146.06 kg Angelica Mendez LPN Work Phone: [employer]; [employer]. 12-11-2019 13:23-0500 Diastolic blood pressure 85 mm[Hg] Angelica Mendez LPN Work Phone: [employer]; [employer]. Comment on above: Patient Position: Sitting; Cuff Location : Left Arm; Cuff Size: Standard 12-11-2019 13:23-0500 Heart rate 91 /min Angelica Andrea LPN Work Phone: [employer]; [employer]. Comment on above: Pattern: Regular 12-11-2019 13:23-0500 Systolic blood pressure 137 mm[Hg] Angelica Mendez LPN Work Phone: [employer]; [employer]. Comment on above: Patient Position: Sitting; Cuff Location : Left Arm; Cuff Size: Standard 10-17-2019 08:57-0500 Diastolic blood pressure 77 mm[Hg] Hector Parnell MD Work Phone: [employer]; [employer]. Comment on above: Patient Position: Sitting; Cuff Location : Right Arm; Cuff Size: Standard 10-17-2019 08:57-0500 Heart rate 90 /min Hector Parnell MD Work Phone: [employer]; [employer]. Comment on above: Pattern: Regular 10-17-2019 08:57-0500 Systolic blood pressure 129 mm[Hg] Hector Parnell MD Work Phone: [employer]; [facility] Comment on above: Patient Position: Sitting; Cuff Location : Right Arm; Cuff Size: Standard 10-05-2019 16:01-0500 Body height 176.53 cm Angelica Mendez LPN Work Phone: [employer]. 10-05-2019 16:01-0500 Body mass index (BMI) [Ratio] 46.87 kg/m2 Angelica Andrea PAINTER DECORATOR Work Phone: [employer].; [employer]. 10-05-2019 16:01-0500 Body surface area Derived from formula 2.54 m2 Angelica Andrea PAINTER DECORATOR Work Phone: [employer].; [employer]. 10-05-2019 16:01-0500 Body weight 146.06 kg Angelica Andrea PAINTER DECORATOR Work Phone: [employer].; [employer]. 10-05-2019 16:01-0500 Diastolic blood pressure 105 mm[Hg] Angelica Andrea PAINTER DECORATOR Work Phone: [employer].; [employer]. Comment on above: Patient Position: Sitting; Cuff Location : Left Arm; Cuff Size: Large 10-05-2019 16:01-0500 Heart rate 99 /min Angelica Andrea PAINTER DECORATOR Work Phone: [employer].; [employer]. Comment on above: Pattern: Regular 10-05-2019 16:01-0500 Systolic blood pressure 177 mm[Hg] Angelica Munozy PAINTER DECORATOR Work Phone: [employer].; [employer]. Comment on above: Patient Position: Sitting; Cuff Location : Left Arm; Cuff Size: Large 07-07-2019 11:39-0400 Body height 176.53 cm [facility] [employer].; [employer]. 07-07-2019 11:39-0400 Body mass index (BMI) [Ratio] 46.87 kg/m2 Olivia [place] [facility], [email or web address].; [employer]. 07-07-2019 11:39-0400 Body surface area Derived from formula 2.54 m2 Marii Mckeon PAINTER DECORATOR [facility] [employer]. 07-07-2019 11:39-0400 Body temperature 98.4 [degF] Marii Mckeon [facility] [employer]. Comment on above: Method: Tympanic 07-07-2019 11:39-0400 Body weight 146.06 kg Marii Mckeon PAINTER DECORATOR [facility] [employer]. 07-07-2019 11:39-0400 Diastolic blood pressure 111 mm[Hg] Marii Mckeon [facility] [employer]. Comment on above: Patient Position: Sitting; Cuff Location : Left Arm; Cuff Size: Large 07-07-2019 11:39-0400 Heart rate 77 /min Marii Mckeon [facility], [email or web address].; [employer]. Comment on above: Pattern: Regular 07-07-2019 11:39-0400 Inhaled oxygen concentration 20 % Marii Mckeon [facility], [email or web address].; [employer]. Comment on above: Room air 07-07-2019 11:39-0400 Inhaled oxygen concentration 21 % Marii Mc[facility], [email or web address].; [employer]. Comment on above: Room air 07-07-2019 11:39-0400 SaO2% (BldA) [Mass fraction] 97 % Marii [facility].; [employer]. 07-07-2019 11:39-0400 Systolic blood pressure 160 mm[Hg] [facility].; [employer]. Comment on above: Patient Position: Sitting; Cuff Location : Left Arm; Cuff Size: Large 01-31-2019 10:03-0400 Body height 176.53 cm Hector Parnell MD Work Phone: [place] [facility].; [employer]. 01-31-2019 10:03-0400 Body mass index (BMI) [Ratio] 44.83 kg/m2 Hector Parnell MD Work Phone: [employer].; [employer]. 01-31-2019 10:03-0400 Body surface area Derived from formula 2.49 m2 Hector Parnell MD Work Phone: [employer].; [employer]. 01-31-2019 10:03-0400 Body temperature 101.6 [degF] Hector Parnell MD Work Phone: [employer].; [employer]. Comment on above: Method: Tympanic 01-31-2019 10:030400 Body weight 139.71 kg Hector Parnell MD Work Phone: [employer].; [employer]. 01-31-2019 10:03-0400 Diastolic blood pressure 90 mm[Hg] Hector Parnell MD Work Phone: [employer]; [employer]. Comment on above: Patient Position: Sitting; Cuff Location : Right Arm; Cuff Size: Standard 01-31-2019 10:030400 Heart rate 98 /min Hector Parnell MD Work Phone: [employer]; [employer]. Comment on above: Pattern: Regular 01-31-2019 10:03-0400 Systolic blood pressure 147 mm[Hg] Hector Parnell MD Work Phone: [employer].; [employer]. Comment on above: Patient Position: Sitting; Cuff Location : Right Arm; Cuff Size: Standard 07-18-2018 13:22-0400 Body height 176.53 cm Lori Batista RN [employer].; [employer]. 07-18-2018 13:22-0400 Body mass index (BMI) [Ratio] 44.69 kg/m2 Lori Batista RN [employer].; [employer]. 07-18-2018 13:22-0400 Body surface area Derived from formula 2.49 m2 Lori Batista RN [facility] [employer] 07-18-2018 13:22-0400 Body temperature 98.1 [degF] Lori Batista RN [facility] [employer], [email or web address].; [employer], [email or web address]. Comment on above: Method: Tympanic 07-18-2018 13:22-0400 Body weight 139.26 kg Lori Batista RN [place] [facility] [employer] 07-18-2018 13:22-0400 Diastolic blood pressure 101 mm[Hg] Lori Batista RN [employer], [email or web address].; [employer], [employer] Comment on above: Patient Position: Sitting; Cuff Location : Left Arm; Cuff Size: Large 07-18-2018 13:22-0400 Heart rate 84 /min Lori Batista RN [facility] [employer], [email or web address].; [employer]. Comment on above: Pattern: Regular 07-18-2018 13:22-0400 Systolic blood pressure 160 mm[Hg] Lori Batista RN [facility] [employer] [employer]. Comment on above: Patient Position: Sitting; Cuff Location : Left Arm; Cuff Size: Large 02-18-2018 13:46-0400 Body height 176.53 cm Marii Mckeon LPN [facility] [employer], [employer] 02-18-2018 13:46-0400 Body mass index (BMI) [Ratio] 44.83 kg/m2 Marii Mckeon LPN [facility] [employer], [employer] 02-18-2018 13:46-0400 Body surface area Derived from formula 2.49 m2 Marii Mckeon LPN [facility] [employer], [email or web address]. 02-18-2018 13:46-0400 Body weight 139.71 kg Marii Mckeon LPN [facility] [employer] [employer], [employer] 02-18-2018 13:46-0400 Diastolic blood pressure 108 mm[Hg] Marii Mcekon LPN [facility] [employer] [employer], [employer] Comment on above: Patient Position: Sitting; Cuff Location : Left Arm; Cuff Size: Large 02-18-2018 13:46-0400 Heart rate 93 /min Marii Mckeon [facility] [employer], [employer] Comment on above: Pattern: Regular 02-18-2018 13:46-0400 Systolic blood pressure 178 mm[Hg] [facility]on [facility] [employer], [employer] Comment on above: Patient Position: Sitting; Cuff Location : Left Arm; Cuff Size: Large 04-04-2016 09:29-0400 Body temperature 98 [degF] Yasmeen Michelle [facility] [employer] [employer], [email or web address]. Comment on above: Method: Tympanic 04-04-2016 09:29-0400 Body weight 131.54 [address] [facility], [facility] [employer], [employer] 04-04-2016 09:29-0400 Diastolic blood pressure 90 mm[Hg] Yasmeen Michelle REESEChrist[facility], [facility].; [employer], [employer] Comment on above: Patient Position: Sitting; Cuff Location : Left Arm; Cuff Size: Standard 04-04-2016 09:29-0400 Heart rate 65 /min Yasmeen Martinez LPN [place] [employer] [employer] Comment on above: Pattern: Regular 04-04-2016 09:29-0400 Systolic blood pressure 136 mm[Hg] Yasmeen Michelle BLANCAS [facility] [employer] [employer], [employer] Comment on above: Patient Position: Sitting; Cuff Location : Left Arm; Cuff Size: Standard 01-16-2016 13:27-0400 Body temperature 97.5 [degF] Estella Randhawa LPN [facility] [employer] [employer] 01-16-2016 13:27-0400 Body weight 133.36 kg Estella Randhawa LPN [facility] [employer] [employer], [email or web address]. 01-16-2016 13:27-0400 Diastolic blood pressure 95 mm[Hg] Estella [facility]hawa LPN [facility] [email or web address].; [facility]. Comment on above: Patient Position: Sitting; Cuff Location : Left Arm; Cuff Size: Standard 01-16-2016 13:27-0400 Heart rate 80 /min Estella Randhawa LPN [facility], [facility].; [employer]. Comment on above: Pattern: Regular 01-16-2016 13:27-0400 Inhaled oxygen concentration 20 % Estella Randhawa LPN [facility], [email or web address].; [employer]. Comment on above: Room air 01-16-2016 13:27-0400 Inhaled oxygen concentration 21 % Estella Randhawa LPN [facility], [email or web address].; [employer]. Comment on above: Room air 01-16-2016 13:27-0400 SaO2% (BldA) [Mass fraction] 97 % Estella Randhawa LPN [facility], [facility].; [employer]. 01-16-2016 13:27-0400 Systolic blood pressure 155 mm[Hg] Estella Randhawa LPN [facility], [email or web address].; [employer]. Comment on above: Patient Position: Sitting; Cuff Location : Left Arm; Cuff Size: Standard 12-24-2015 09:35-0500 Body temperature 99.3 [degF] Hector Parnell MD Work Phone: [facility], [email or web address].; [employer]. Comment on above: Method: Tympanic 12-24-2015 09:35-0500 Body weight 136.08 kg Hector Parnell MD Work Phone: [facility] [email or web address].; [employer]. 12-24-2015 09:35-0500 Diastolic blood pressure 91 mm[Hg] Hector Parnell MD Work Phone: [place] [facility].; [employer]. Comment on above: Patient Position: Sitting; Cuff Location : Left Arm; Cuff Size: Standard 12-24-2015 09:35-0500 Heart rate 93 /min Hector Parnell MD Work Phone: [facility], [email or web address].; [employer]. Comment on above: Pattern: Regular 12-24-2015 09:35-0500 Inhaled oxygen concentration 20 % Hector Parnell MD Work Phone: [place] [employer].; [employer]. Comment on above: Room air 12-24-2015 09:35-0500 Inhaled oxygen concentration 21 % Hector Parnell MD Work Phone: [place] [facility].; [employer]. Comment on above: Room air 12-24-2015 09:35-0500 SaO2% (BldA) [Mass fraction] 97 % Hector Parnell MD Work Phone: [place] [employer].; [employer]. 12-24-2015 09:35-0500 Systolic blood pressure 180 mm[Hg] Hector Parnell MD Work Phone: [employer].; [employer]. Comment on above: Patient Position: Sitting; Cuff Location : Left Arm; Cuff Size: Standard 04-02-2015 09:17-0400 Body weight 136.99 kg Yasmeen Martinez LPN [place] [facility].; [employer]. 04-02-2015 09:17-0400 Diastolic blood pressure 90 mm[Hg] Yasmeen Martinez LPN [employer].; [employer]. Comment on above: Patient Position: Sitting; Cuff Location : Left Arm; Cuff Size: Standard 04-02-2015 09:17-0400 Heart rate 73 /min Yasmeen Martinez LPN [employer].; [employer]. Comment on above: Pattern: Regular 04-02-2015 09:17-0400 Systolic blood pressure 145 mm[Hg] Yasmeen Martinez LPN [employer].; [employer]. Comment on above: Patient Position: Sitting; Cuff Location : Left Arm; Cuff Size: Standard Encounters Encounter Date Encounter Type Care Provider Facility Start: 08-08-2025 End: 08-09-2025 Emergency department patient visit MICHAEL SCHO[facility] Start: 08-17-2024 End: 08-17-2024 Periodic preventive med est patient 18-39 yrs Hector Parnell MD Work Phone: [employer]. Start: 08-17-2024 End: 08-17-2024 Physical examination Hector Parnell MD Work Phone: [employer] Start: 08-17-2024 Review Hector Parnell MD Work Phone: [employer]. Start: 08-19-2023 End: 08-19-2023 Office outpatient visit 15 minutes Hector Parnell MD Work Phone: [employer]. Start: 12-31-2022 End: 12-31-2022 Phone Encounter Hector Parnell MD Work Phone: [employer]. Start: 12-28-2022 End: 12-28-2022 Orders Hector Parnell MD Work Phone: [employer]. Start: 12-28-2022 End: 12-28-2022 Office outpatient visit 15 minutes Hector Parnell MD Work Phone: [employer]. Start: 11-26-2022 End: 11-26-2022 Office outpatient visit 15 minutes Hector Parnell MD Work Phone: [employer]. Start: 08-13-2022 End: 08-13-2022 Office outpatient visit 15 minutes Hector Parnell MD Work Phone: [employer]. Start: 03-02-2022 End: 03-02-2022 Medication Hector Parnell MD Work Phone: [employer]. Start: 02-06-2022 End: 02-06-2022 Telephone follow-up Hector Parnell MD Work Phone: [employer]. Start: 02-06-2022 End: 02-06-2022 Office outpatient visit 15 minutes Hector Parnell MD Work Phone: [employer]. Start: 08-14-2021 End: 08-14-2021 Office outpatient visit 15 minutes Hector Parnell MD Work Phone: [employer]. Start: 07-06-2021 End: 07-11-2021 Orders Hector Parnell MD Work Phone: [employer]. Start: 03-06-2021 End: 03-06-2021 Office outpatient visit 15 minutes Hector Parnell MD Work Phone: [employer]. Start: 02-15-2021 End: 02-15-2021 Office outpatient visit 15 minutes Hector Parnell MD Work Phone: [employer] Start: 08-12-2020 End: 08-12-2020 Patient encounter procedure Hector Parnell MD Work Phone: [employer]. Start: 05-12-2020 End: 05-12-2020 Follow-up encounter Hector Parnell MD Work Phone: [employer] Start: 04-06-2020 End: 04-06-2020 Office outpatient visit 15 minutes Hector Parnell MD Work Phone: [employer]. Start: 12-25-2019 End: 12-25-2019 Historical Summary Hectro Parnell MD Work Phone: [employer]. Start: 12-11-2019 End: 12-11-2019 Procedure Hector Parnell MD Work Phone: [employer] Start: 10-17-2019 End: 10-17-2019 Nursing evaluation of patient and report Hector Parnell MD Work Phone: [employer] Start: 10-05-2019 End: 10-05-2019 Office outpatient visit 15 minutes Hector Parnell MD Work Phone: [employer] Start: 07-07-2019 End: 07-07-2019 Office outpatient visit 15 minutes Hector Parnell MD Work Phone: [employer]. Start: 01-31-2019 End: 01-31-2019 Office outpatient visit 15 minutes Hector Parnell MD Work Phone: [employer] Start: 07-18-2018 End: 07-18-2018 Office outpatient visit 15 minutes Hector Parnell MD Work Phone: [employer] Start: 02-18-2018 End: 02-18-2018 Office outpatient visit 15 minutes Hector Parnell MD Work Phone: [employer] Start: 07-20-2016 End: 07-20-2016 Orders Hector Parnell MD Work Phone: [employer] Start: 06-29-2016 End: 06-29-2016 Medication Hector Parenll MD Work Phone: [employer] Start: 05-25-2016 End: 05-25-2016 Medication Hector Parnell MD Work Phone: [employer] Start: 04-04-2016 End: 04-04-2016 Patient encounter procedure Hector Parnell MD Work Phone: [employer] Start: 01-16-2016 End: 01-16-2016 Office outpatient visit 15 minutes Hector Parnell MD Work Phone: [employer] Start: 12-24-2015 End: 12-25-2015 Patient encounter procedure Hector Parnell MD Work Phone: [employer] Start: 04-02-2015 End: 04-02-2015 Patient encounter procedure Hector Parnell MD Work Phone: [employer] Procedures Date Procedure Procedure Detail Performing Clinician [...] ecg w/least 12 lds i&r only Eladio Reym MD Work Phone: Comment on above: NSR Start: 02-18-2018 End: 02-18-2018 Body mass index documented Hector Parnell MD Work Phone: H/O: vasectomy H/O vasectomy Kennedy Kitchen PAINTER DECORATOR H/O: vasectomy H/O vasectomy Ai Bustos PAINTER DECORATOR Plan of Treatment Date Care Activity Detail Author Start: 08-17-2024 Patient encounter procedure Medical; PHYSICAL - [facility] [employer]. Start: 17-Aug-2024 15:00-04:00 MD Hector Parnell Appointment Request [employer]. Start: 08-14-2021 End: 08-14-2021 Myocardial spect multiple studies Exercise Cardiolite Stress Test Date: 14-Aug-2021 [employer]. Payers Date Payer Category Payer Unknown [id number] Unknown [employer] Unknown [id number] Social History Date Type Detail Facility Alcohol Use: Alcohol Use: ; M oderate alcohol use. [employer] Tobacco Use: Tobacco Use: ; C urrent every day smoker. [employer], [email or web address]. Male [facility] [employer] Work Phone: Moderate alcohol use [employer]. Work Phone: [facility] tobacco daily [facility] Work Phone: Summary Purpose Family History No Family History Records FoundNo Family History Records Found Advance Directives No Advanced Directives Records FoundNo Advanced Directives Records Found Additional Source Comments (unrecognized sect ion and content) No Status Records FoundNo Status Records Found INFORMATION SOURCE (unrecogn ized section and content) DATE CREATED AUTHOR 09/01/2020 [facility] DATE CREATED AUTHOR AUTHOR'S ORGANIZ ATION 08/11/2025 [facility] FOR RECORDS PERTAINING TO PATIENTS WHO [...] BE BASED ON THE PRIMARY CLINICAL RECORDS. [employer] provides no warranty or guarantee of the accuracy or completeness of information in this document.
[2025-10-10 13:26] LABS: Barbiturate Urine NEGATIVE (< 200 ng/mL); Benzodiazepine Urine NEGATIVE (< 200 ng/mL); PCP Urine NEGATIVE (< 25 ng/mL); THC Urine NEGATIVE (< 50 ng/mL)
[2025-10-10] MEDS: 0.9% Saline Lock 10 ML Syringe IV (14:15)
[2025-10-10] MEDS: Lactated Ringers 1,000 ML 200 ML IV ×3 (14:15→23:59)
[2025-10-10] MEDS: Nicotine (PBKC) 21 MG Patch TD (14:57)
[2025-10-10] MEDS: Nicotine 2mg Gum (PBKC) 2 MG GUM PO (18:17)
[2025-10-10] MEDS: hydrOXYzine PAM 25 MG Capsule 50 MG PO (19:37)
[2025-10-11] VITALS (9 sets, daily range): BP systolic 147–179; BP diastolic 90–123; PULSE 61–86; RESP 16–18; TEMP 36.8–37.1; O2SAT 99–100
[2025-10-11] MEDS: hydrOXYzine PAM 25 MG Capsule 50 MG PO (02:23)
[2025-10-11] MEDS: Lactated Ringers 1,000 ML 200 ML IV ×3 (04:47→15:42)
[2025-10-11 06:58] LABS: Hematocrit 43.1 % (40-54); Hemoglobin 15.3 g/dL (13.0-16.5); Immature Granulocytes Count 0.030 X10^3/uL (0.0-0.0); Mean Corp Hgb Conc 35.5 g/dL (32-36); Mean Corpuscular Volume 90.7 fL (80-94); Mean Platelet Vol. 11.5 fl (6.2-12.0); NRBC Flagged by Analyzer 0 % (0-5); POSITIVE COUNT YES; Platelet Count 74 K/mm3 (150-450); RBC Distribution Width CV 11.9 % (11.6-14.6); RBC Distribution Width SD 39.8 fl (35.1-43.9); Red Blood Count 4.75 M/mm3 (4.6-6.2); White Blood Count 10.8 K/mm3 (4.4-11.0)
[2025-10-11 07:26] LABS: AST(SGOT) 67 U/L (<=37); Alanine Aminotransfer ALT/SGPT 70 U/L (<=46); Albumin, Serum 3.8 g/dL (3.5-5.0); Alkaline Phosphatase 62 U/L (40-129); Anion Gap 11 (5-15); BUN 7 mg/dL (4-19); BUN/Creat Ratio 9.0 RATIO (10-20); Calcium,Total 9.1 mg/dL (7.6-11.0); Carbon Dioxide 28.0 mmol/L (21.0-32.0); Chloride 95 mmol/L (98-108); Estimated Creatinine Clearance 150.04 ml/min (50-250); Globulin 2.6 g/dL (2.2-4.2); Glucose 129 mg/dL (70-99); Magnesium 1.9 mg/dL (1.5-2.2); Potassium 3.6 mmol/L (3.3-5.1)
[2025-10-11] MEDS: Nicotine (PBKC) 21 MG Patch TD (08:42)
[2025-10-11] MEDS: Thiamine Hydrochloride 100 MG Tablet PO (08:42)
[2025-10-11] MEDS: Pantoprazole Sodium 40 MG in 0.9% Normal Saline (100mL MB+) 100 ML 300 MG IV (08:42)
--- NOTE | 2025-10-11 10:50 | PN.HOSP_ITS ---
Subjective Subjective CIWA score of 2 Objective Data Objective Data Vital Signs: Vital Signs Temp Pulse Resp BP Pulse Ox O2 Del Method 98.4 F 68 16 160/100 H 99 Room Air 10/11/25 10:00 10/11/25 10:00 10/11/25 10:00 10/11/25 10:00 10/11/25 10:00 10/11/25 10:00 Oxygen Delivery Method Room Air Weight: 210 lb 12.8 oz Body Mass Index (BMI) 29.4 Intake & Output: Intake and Output for Last 24 Hours 10/10/25 10/11/25 10/12/25 03:59 03:59 03:59 Intake Total 2853.33 / 2853.33 2059 Balance 2853.33 / 2853.33 2059 Lab / Micro Data 10/11/25 06:38 10/11/25 06:38 Labs: Laboratory Results - last 24 hr 10/10/25 11:20: WBC 11.1 H, RBC 5.20, Hgb 16.9 H, Hct 46.8, MCV 90.0, MCH 32.5 H , MCHC 36.1 H, RDW Std Deviation 38.7, RDW Coeff of Lindsay 11.8, Plt Count 88 L, MPV 10.9, Immature Gran % (Auto) 0.500, Neut % (Auto) 84.1 H, Lymph % (Auto) 7.0 L, [place] % (Auto) 7.6, Eos % (Auto) 0.3, Baso % (Auto) 0.5, Absolute Neuts (auto) 9.3 H, Absolute Lymphs (auto) 0.77 L, Nucleated RBC % 0, Platelet Estimate MOD DEC, PT 12.6, INR 0.9, APTT 25.7, Sodium 133, Potassium 3.8, Chloride 86 L, Carbon Dioxide 28.1, Anion Gap 19 H, BUN 5, Creatinine 0.71, Estim Creat Clear Calc 157.16, Est GFR (MDRD) Non-Af 120, BUN/Creatinine Ratio 6.8 L, Glucose 112 H, Calcium 9.7, Total Bilirubin 1.81 H, AST 115 H, ALT 107 H, Alkaline Phosphatase 69, Total Protein 7.6, Albumin 4.5, Globulin 3.1, Albumin/Globulin Ratio 1.4, Triglycerides 81, Cholesterol 243 H, LDL Cholesterol, Calc 95, VLDL Cholesterol 16, HDL Cholesterol 135, Cholesterol/HDL Ratio 1.80, Lipase 511 H, E thyl Alcohol 130.0 H 10/10/25 11:45: Urine Color Yellow, Urine Clarity Clear, Urine pH 7.0, Ur Specific [place] 1.005, Urine Protein 30 H, Urine Glucose (UA) Normal, Urine Ketones 5 H, Urine Occult Blood 10 H, Urine Nitrite Negative, Urine Bilirubin Negative, Urine Urobilinogen 4 H, Ur Leukocyte Esterase Negative, Urine RBC 0 SEEN, Urine WBC 0 SEEN, Ur Squamous Epith Cells 0 SEEN, Urine Bacteria 0 SEEN, Urine Mucus 0 SEEN, Urine Opiates Screen NEGATIVE, U Buprenorphine Qual NEGATIVE, Ur Oxycodone Screen NEGATIVE, Urine Methadone Screen NEGATIVE, Urine Fentanyl Screen NEGATIVE, Ur Barbiturates Screen NEGATIVE, Ur Phencyclidine Scrn NEGATIVE, Ur Amphetamines Screen NEGATIVE, U Benzodiazepines Scrn NEGATIVE, Urine Cocaine Screen NEGATIVE, U Cannabinoids Screen NEGATIVE 10/11/25 06:38: WBC 10.8, RBC 4.75, Hgb 15.3, Hct 43.1, MCV 90.7, MCH 32.2 H, MCHC 35.5, RDW Std Deviation 39.8, RDW Coeff of [place] 11.9, Plt Count 74 L, MPV 11.5, Immature Gran % (Auto) 0.300, Neut % (Auto) 83.6 H, Lymph % (Auto) 8.4 L, [place] % (Auto) 6.4, Eos % (Auto) 0.9, Baso % (Auto) 0.4, Absolute Neuts (auto) 9.1 H, Absolute Lymphs (auto) 0.91, Nucleated RBC % 0, Sodium 133, Potassium 3.6, Chloride 95 L, Carbon Dioxide 28.0, Anion Gap 11, BUN 7, Creatinine 0.78, Estim Creat Clear Calc 150.04, Est GFR (MDRD) Non-Af 116, BUN/Creatinine Ratio 9.0 L, Glucose 129 H, Calcium 9.1, Phosphorus 2.5 L, Magnesium 1.9, Total Bilirubin 1.63 H, AST 67 H, ALT 70 H, Alkaline Phosphatase 62, Total Protein 6.4, Albumin 3.8, Globulin 2.6, Albumin/Globulin Ratio 1.5 Radiography Diagnostic Testing: Radiology Impression Abdomen/Pelvis CT 10/10/25 11:14 IMPRESSION: 1. Findings consistent with acute pancreatitis. No signs of pancreatic necrosis or pseudocyst. 2. Hepatomegaly with diffuse hepatic steatosis. 3. Multifocal right lung opacities, suggesting pneumonia. Reading Location: [facility] Physical Exam Narrative General: Alert, Oriented x3, Cooperative, No apparent distress HEENT: Atraumatic, PERRLA, EOMI, Normocephalic Oral: Moist Mucosa Neck: Supple, No JVD Lungs: Diminished, Normal air movement, No rhonchi, No wheeze, No rales Cardiovascular: Regular rate, Regular Rhythm, Normal S1, Normal S2, No murmurs Abdomen: Soft, minimal epigastric tenderness, Non-Distended, No Hepato- splenomegaly Extremities: No edema, Capillary Refill Less than 3 Seconds Skin: No rashes, No breakdown Musculoskeletal: No Tenderness to Palpation of Joints or Extremities Neurological: No focal neurological deficits, moves all extremities Psych/Mental Status: Normal Affect, Appropriate Assessment & Plan Assessment/Plan (1) Alcohol withdrawal: (2) Acute pancreatitis: (3) Alcoholic hepatitis: PLAN: Plan 1. Alcohol abuse requesting detox in the setting of acute pancreatitis from alcohol as well as alcoholic hepatitis/tobacco abuse ? Chronic thrombocytopenia from alcohol will monitor ? Continue with the alcohol withdrawal protocol ? Will slowly advance his diet for his pancreatitis, currently on clears ? LFTs are improving ? Cessation was discussed nicotine patch as needed 2. Elevated blood pressures ? Continue with hydralazine ? Can make adjustments on discharge DVT: Ambulation Charges/Coding Visit Charges Inpatient E&M: 39740 Subs Hosp L2
--- NOTE | 2025-10-11 11:12 | ADDICTION ---
Addendum entered by Ashley Mckeon 10/11/25 11:42: Pt's girlfriend telephoned and informed us he was wet up for the [facility] in [place], [place]. Clinician called and confirmed this and the center will hold his spot until he discharges. Original Note: Patient presented with a plan to enter residential treatment for alcohol dependence but reported severe abdominal pain upon arrival. Evaluation revealed a diagnosis of pancreatitis. Pt remains motivated to pursue residential treatment and is agreeable to inpatient care at a facility that accepts his insurance. Attempted to contact pt?s mother, who reportedly knows the name of the intended treatment center; voicemail was left requesting a return call. Clinician and pt explored behaviors associated with addiction, history of relapse, and the anxiety commonly experienced during early recovery and in response to cravings. Pt demonstrated understanding and expressed continued interest in treatment.
[2025-10-12 02:00] VITALS: BP 163/109; PULSE 77; RESP 16; TEMP 36.9; O2SAT 100
[2025-10-12 06:00] VITALS: BP 146/103; PULSE 86; RESP 16; TEMP 36.7; O2SAT 98
--- NOTE | 2025-10-12 09:15 | DCINST_ITS ---
Discharge Instructions DC O2, CPAP, BIPAP needs Home O2 Discharge instructions: No Dressing / Incision Discharge Activity: Return to Normal Activity Dressing / Incision Call your doctor if you observe: Fever of 101 or Higher, Shortness of breath, Dizziness, Fainting spells, Swelling in the ankles, Chest pain and Increased palpitations (irregular heartbeat) Follow Up Care Test Results: Test results from this visit will be discussed in further detail at your follow- up appointment, if applicable. Discharge Plan Admission Admit Date/Time: 10/10/25 12:56 Attending Provider: Marbin Wesley Primary Care Provider: Jose Luis Parnell Consulting Providers: Sue Santamaria Discharge Orders/Prescriptions Prescriptions: No Action NK Referrals / Follow Up: Jose Luis Parnell MD [Primary Care Provider, Medical] Disposition Disposition (needs filled in before D/C Order can be placed): Home, Self Care
--- NOTE | 2025-10-12 09:17 | DS.PCM_ITS ---
Providers Date of Admission: 10/10/25 Primary Care Physician: Dr. Jose Luis Parnell MD Reason For Visit: ETOH PANCREATITIS/ETOH DETOX Diagnosis Discharge Diagnosis (1) Alcohol withdrawal: Status: Acute Code(s): F10.939 - Alcohol use, unspecified with withdrawal, unspecified (2) Acute pancreatitis: Status: Acute Code(s): K85.90 - Acute pancreatitis without necrosis or infection, unspecified (3) Alcoholic hepatitis: Status: Acute Code(s): K70.10 - Alcoholic hepatitis without ascites Medications at Discharge Home Medications amlodipine 10 mg tablet (Norvasc) 10 mg PO DAILY #30 tabs 10/12/25 Hospital Course Operations None Procedures None Summary of Care Provided Minutes Spent on Discharge: 33 Hospital Course: Per HPI: CARLOTTA EVANGELISTA, is a 39 M who presented to the emergency department at [facility] on 10/10/2025 with a chief complaint of abdominal pain. Patient states he has been having symptoms for about a week but really acutely got worse in the last 24 hours with epigastric and right upper quadrant pain that radiated to his back. He drinks alcohol at least 20-30 Martín lights daily. He stated about a week ago he reached out to a friend who had success with sobriety and was planning to be admitted to a rehab facility on Saturday however his pain was so severe that he decided to be evaluated here at the emergency department today. He has had some associated nausea and vomiting. He has not really had much to eat in the last 3 days. He has never gone through detox before. Vital signs on presentation showed temperature 98.2, heart rate 71, respiratory 16, blood pressure was 184/111 and pulse ox was 98% on room air. CBC shows a mild leukocytosis white count 11.1 and thrombocytopenia with a platelet count of 88,000. His hemoglobin is elevated at 16.9. We have no previous lab for comparison. Coags were normal. Chemistry panel showed hyperchloride EMEA and an elevated anion gap with a total bilirubin of 1.81 and AST of 115 and ALT of 107. Lipase was 511. Urinalysis was unremarkable toxicology was negative. Blood alcohol level was 130. CT of the abdomen pelvis showed acute pancreatitis without signs of necrosis or pseudocyst, hepatomegaly with diffuse hepatic steatosis and multifocal right lung opacities. Imaging was reviewed by me and the pulmonary opacities are minimal with patient's exam and complaints/vitals not consistent with pneumonia. Patient was treated with IV fluids and antiemetics with pain medication in the emergency department. Hospital Course: 1. Alcohol abuse requesting detox in setting of acute pancreatitis from alcohol as well as alcoholic hepatitis/tobacco abuse?39-year-old male presented to the hospital with severe abdominal pain in the setting of chronic alcohol abuse. He came in on Saturday because he was initially planning to go to a detox center down in [place] for inpatient rehab on 10/12/2025 however he developed severe abdominal pain he presented to the hospital was found to have pancreatitis as well as alcoholic hepatitis. His hepatitis is improving and his pancreatitis has resolved, he is tolerating a regular diet without any abdominal pain. He request to be discharged today and expressed understanding of the risks and benefits of going home and would like to go home today. He states that he wants to have a family member drive him down to inpatient rehab as he wants to get his clothes before going down. LFTs have been improving so I do recommend outpatient monitoring. 2. Essential hypertension?he does not carry a diagnosis of hypertension prior to arrival however his blood pressures have been elevated with his diastolics over 100 and his systolics on average over 170. Will plan to discharge on Norvasc 10 mg daily. Physical Exam Narrative General: Alert, Oriented x3, Cooperative, No apparent distress HEENT: Atraumatic, PERRLA, EOMI, Normocephalic Oral: Moist Mucosa Neck: Supple, No JVD Lungs: Diminished, Normal air movement, No rhonchi, No wheeze, No rales Cardiovascular: Regular rate, Regular Rhythm, Normal S1, Normal S2, No murmurs Abdomen: Soft, minimal epigastric tenderness, Non-Distended, No Hepato- splenomegaly Extremities: No edema, Capillary Refill Less than 3 Seconds Skin: No rashes, No breakdown Musculoskeletal: No Tenderness to Palpation of Joints or Extremities Neurological: No focal neurological deficits, moves all extremities Psych/Mental Status: Normal Affect, Appropriate Weight / BMI Weight Weight: 210 lb 12.8 oz Body Mass Index (BMI) 29.4 ABG / Lab / Microbiology Data 10/11/25 06:38 10/11/25 06:38 D/C Instructions Call your doctor if you observe: Fever of 101 or Higher, Shortness of breath, Dizziness, Fainting spells, Swelling in the ankles, Chest pain and Increased palpitations (irregular heartbeat) DC O2, CPAP, BIPAP Needs Home O2 Discharge instructions: No Meaningful Use Info Meaningful Use Meaningful Use Diagnoses (Choose all that apply): None applicable Discharge Plan Admission Admit Date/Time: 10/10/25 12:56 Attending Provider: Marbin Wesley Primary Care Provider: Jose Luis Parnell Consulting Providers: Sue Santamaria Discharge Orders/Prescriptions Prescriptions: New amlodipine [Norvasc] 10 mg tablet 10 mg PO DAILY Qty: 30 0RF Referrals / Follow Up: Jose Luis Parnell MD [Primary Care Provider, Medical] Disposition Disposition (needs filled in before D/C Order can be placed): Home, Self Care Charges/Coding Visit Charges Inpatient E&M: 71477 Disch Hosp >30min
[2025-10-12 09:24] VITALS: BP 144/101; PULSE 95; RESP 16; TEMP 36.7; O2SAT 98
[2025-10-12] MEDS: Thiamine Hydrochloride 100 MG Tablet PO (09:26)
[2025-10-12] MEDS: Nicotine (PBKC) 21 MG Patch TD (09:26)
--- NOTE | 2025-10-12 09:47 | PHA.DC.MR.R ---
Pharmacy [place] Med Reconciliation Pharmacy Service has performed discharge medication reconciliation for this patient. The patient's discharge medication list was reviewed for discrepancies and discrepancies were resolved. Medications at Discharge Home Medications amlodipine 10 mg tablet (Norvasc) 10 mg PO DAILY #30 tabs 10/12/25
== END 2025-10-12 10:49 | disposition home or self-care (01) | DRG 439 ==
LOC: ED 12:58 → MS3 13:22
PROVIDERS: Admitting Provider Internal Medicine; Emergency Provider Emergency Medicine; PCP Family Medicine; Visit Provider Family Medicine
DX: K85.20 Alcohol induced acute pancreatitis without necrosis or infection (principal); E87.21 Acute metabolic acidosis; F10.139 Alcohol abuse with withdrawal, unspecified; K70.10 Alcoholic hepatitis without ascites; I10 Essential (primary) hypertension; D69.6 Thrombocytopenia, unspecified; F17.210 Nicotine dependence, cigarettes, uncomplicated; E80.7 Disorder of bilirubin metabolism, unspecified; Y90.6 Blood alcohol level of 120-199 mg/100 ml
CPT/HCPCS: 36415; 74177; 80053; 80061; 80307; 81001; 82077; 83690; 83735; 84100; 85025; 85610; 85730; 94668; 99285; 99406; Q9967; A4216; J2405